=== PATIENT | female | born 1960 | race Caucasian/White ===

== ENCOUNTER 2021-12-22 22:40 | Inpatient (IN) ==
--- NOTE | 2021-12-22 22:59 | DR.AMS ---
HPI Time Seen Time Seen by Provider: 12/22/21 22:57 PCP Primary Care Physician: LYNDSEY CASTAÑEDA Complaint Cheif Complaint Doctors Comments: a 61 y/o male brought to the ED by [facility] due to AMS. Pt. is not able to provide hx. The staff nurse here called the residence and chatted with the pt's daughter who called EMS. The daughter states that ther has been notable change in mentation for about 1 welek now as well as weekness. The daughter and her has had to carry the pt. to and from bed/chair for the past couple of days. She has recently been started on an antibiotic for a UTI, though they are unuure aida much of this antibiotc that she has actually taken. The daughter states that the pt. had called her on the phone twice today, while she was at work. It was when the daughte arrived home about 1730 hrs. this evening, that she noted more decline in in awakefulness. She was able to adminsister her dose of Gabapentin this evening. Chief Complaint:: PT IN ED VIA [facility]. EMS STATES AMS x1 WK THAT HAS BEEN GETTING WORSE. RECENT UTI, UNKNOWN IF PT TOOK ABX FOR IT. COVID-19 Coronavirus risk:travel/contact w/high risk person: No Has patient experienced Coronavirus symptoms: No Reviewed Nurses Notes Reviewed: Yes Source History Provided: Family Member and EMS Mode of Arrival Mode of Arrival: EMS Timing Onset of Chief Complaint: 12/15/21 Came On: Gradually Symptoms: Worsening Symptom Onset: Known Onset of Symptoms Start Date: 12/15/21 Quality Quality: Decreased Alertness Context Recent: None History Of: Diabetes Associated Signs and Symptoms Associated Signs and Symptoms: Decreased LOC PMH PMH Past Medical History: Yes Past Medical History: Anxiety, CHF, Diabetes, Hypertension, MS and Renal Disease Past Medical History Comment: UTI, CKD STAGE 3, BULLOWS PEMPHIGOID Past Surgical History: Yes Surgical History: Angioplasty/Stents, Cholecystectomy, Ortho Surgery, Tonsillectomy and Other Past Surgical History Comment: RIGHT BKA Family History History of Family Medical Conditions: Yes Family Medical History: Diabetes Mellitus, MS and Hypertension Social History Alcohol Use: None Do you use any recreational Drugs:: No Travel Risk Coronavirus risk:travel/contact w/high risk person: No Has patient experienced Coronavirus symptoms: No Infectious screening Have you traveled outside the country in the last 6 months?: No Isolation: Standard ROS Review of Systems Constitutional: Weakness Eyes: No Symptoms Reported ENTM: No Symptoms Reported Respiratoy: No Symptoms Reported Cardiovascular: No Symptoms Reported Gastrointestinal/Abdominal: No Symptoms Reported Genitourinary: No Symptoms Reported Neurological: Other (decreased alertness) Musculoskeletal: No Symptoms Reported Integumentary: No Symptoms Reported Hematologic/Lymphatic: No Symptoms Reported Endocrine: No Symptoms Reported Psychiatric: No Symptoms Reported All Other Systems: Reviewed and Negative PE Vitals Vital Signs: Temp Pulse Pulse Resp BP BP Pulse Ox 12/23/21 00:31 100.4 F H 89 18 101/49 95 12/23/21 00:01 100.9 F H 88 18 106/52 94 L 12/22/21 22:43 102.9 F H 96 H 18 146/58 100 12/05/21 20:57 130/55 O2 Del Method 12/23/21 00:31 Room Air 12/23/21 00:01 12/22/21 22:43 Room Air 12/05/21 20:57 General Limitations: Altered Mental Status General Appearance: Lethargic Head Head Exam: Normal Inspection, Atraumatic and Normocephalic Eyes Eye exam: Normal Appearance and EOMI ENT ENT Exam: Normal External Ear Exam and Mucous Membranes Dry Nose Exam: Normal Nose Exam Mouth Exam: negative Normal Inspection, Drooling, Trismus, Lip Swelling, Tongue Elevation, Tongue Swelling or Laceration Neck Neck Exam: Normal Inspection, Full ROM and Trachea Midline Chest Chest Inspection: Normal Inspection and Symmetric Chest Wall Rise Respiratory Respiratory Exam: Normal Lung Sounds Bilat Cardiovascular Cardiovascular Exam: Regular Rate, Normal Rhythm, Normal Heart Sounds, +S1 and +S2 Abdominal Exam Abdominal Exam: Normal Inspection, Normal Bowel Sounds and Soft Extremities Extremities Exam: Other (s/p Rt. BKA, s/p amputation of Lt. 1st toe. There is celulitis from mid Lt. metatarsal down. There is wet, black gangrene of the Lt. 2nt toe. There is erythema/cellulitis of the Lt. 3rd toe. There is there is ulceration and cellulitis of the amputation stump at the Lt. 1st MTP joint. ) Back Back Exam: Normal Inspection Neurological Neurological Exam: Other (Arousable and oriented to self.) Patient Oriented To: Person Skin Skin Exam: Other (see exam noted under extremities. there is maceration of the Lt. 2nd and 3rd toe web spaces. Thereis an open blister on her Lt. flank, Lt. buttock medially. There is weeping sectretion from her inguinal and abdominal panippulous skin folds and multiple sdy scabs on her body. in ) COURSE Reevaluation 1st: Unchanged ROR Labs Reviewed Result Diagrams: 12/22/21 23:26 12/22/21 23: Laboratory: WBC 17.6 X10^3/uL (3.6-10.0) H 12/22/21 23: RBC 3.12 X10^6/uL (3.5-5.4) L 12/22/21 23: Hgb 8.8 g/dL (12.0-16.0) L 12/22/21: Hct 26.5 % (36.0-47.0) L 12/22/21 23: MCV 84.9 fL (80.0-100.0) 12/22/21 23: MCH 28.1 pg (27.0-34.0) 12/22/21 23: MCHC 33.1 g/dL (33.0-35.0) 12/22/21 23: RDW 14.2 % (11.6-16.5) 12/22/21: Plt Count 428 X10^3/uL (150.0-450.0) 12/22/21 23: MPV 7.2 fL (7.4-11.0) L 12/22/21 23: Neut % (Auto) 82.6 % (42.0-75.0) H 12/22/21: Lymph % (Auto) 4.7 % (21.0-51.0) L 12/22/21 23: [place] % (Auto) 5.1 % (0.0-13.0) 12/22/21: Eos % (Auto) 7.0 % (0.9-2.9) H 12/22/21 23: Baso % (Auto) 0.6 % (0.2-1.0) 12/22/21 23: Neut # (Auto) 14.5 x10^3/uL (2.2-4.8) H 12/22/21 23:26 Lymph # (Auto) 0.8 X10^3/uL (1.3-2.9) L 12/22/21 23:26 [place] # (Auto) 0.9 x10^3/uL (0.3-0.8) H 12/22/21 23:26 Eos # (Auto) 1.2 x10^3/uL (0.0-0.2) H 12/22/21 23:26 Baso # (Auto) 0.1 X10^3/uL (0.0-0.1) 12/22/21 23:26 Absolute Nucleated RBC 0.0 /100WBC 12/22/21 23:26 Sodium 133 mmol/L (136-145) L 12/22/21 23:26 Corrected Sodium TNP 12/22/21 23: Potassium 4.7 mmol/L (3.5-5.1) 12/22/21 23:26 Chloride 103 mmol/L (98-107) 12/22/21 23:26 Carbon Dioxide 19.5 mmol/L (21-32) L 12/22/21 23:26 BUN 38 mg/dL (7-18) H 12/22/21 23:26 Creatinine 2.69 mg/dL (0.55-1.02) H 12/22/21 23:26 Est GFR (MDRD) Af Amer 23 (>60) L 12/22/21 23:26 Est GFR (MDRD) Non-Af 19 (>60) L 12/22/21 23:26 Glucose 110 mg/dL (65-99) H 12/22/21 23:26 Calcium 7.3 mg/dL (8.5-10.1) L 12/22/21 23:26 Corrected Calcium 9.1 mg/dL (8.5-10.1) 12/22/21 23: Total Bilirubin 0.20 mg/dL (0.2-1.0) 12/22/21 23: AST 9 Units/L (15-37) L 12/22/21 23:26 ALT < 6 Units/L (12-78) L 12/22/21 23:26 Alkaline Phosphatase 248 Units/L (46-116) H 12/22/21 23:26 Total Protein 7.1 g/dL (6.4-8.2) 12/22/21 23: Albumin 1.8 g/dL (3.4-5.0) L 12/22/21 23: Globulin 5.3 g/dL (2.5-4.5) H 12/22/21 23: Albumin/Globulin Ratio 0.3 Ratio (1.1-2.1) L 12/22/21 23:26 Specimen Type Catherized urine 12/22/21 23:25 Urine Color Yellow (YELLOW) 12/22/21 23: Urine Appearance Cloudy (CLEAR) 12/22/21 23: Urine pH 7.0 (5.0 - 8.0) 12/22/21 23: Ur Specific [place] 1.005 (1.000-1.030) 12/22/21 23: Urine Protein 2+ (NEGATIVE) 12/22/21 23: Urine Glucose (UA) Negative (NEGATIVE) 12/22/21 23: Urine Ketones Negative (NEGATIVE) 12/22/21 23: Urine Blood 2+ (NEGATIVE) 12/22/21 23: Urine Nitrite Negative (NEGATIVE) 12/22/21 23: Urine Bilirubin Negative (NEGATIVE) 12/22/21 23:25 Urine Urobilinogen Normal (NORMAL) 12/22/21 23:25 Ur Leukocyte Esterase 3+ (NEGATIVE) 12/22/21 23:25 Urine RBC 3-5 /HPF (0-3) A 12/22/21 23:25 Urine WBC Tntc /HPF (0-5) A 12/22/21 23:25 Ur Squamous Epith Cells Rare /HPF (NEGATIVE) 12/22/21 23:25 Urine Bacteria 4+ /HPF (NEGATIVE) 12/22/21 23:25 Ur Culture Indicated? Yes/culture set up 12/22/21 23:25 Opioid Opioid Risk Tool Age (Skip box if 16-45): No History of Preadolescent Sexual Abuse: No Total: 0 Total Score Risk Category: Low Risk Copyright: Doroteo NICHOLAS predicting aberrant behaviors Discharge Plan Diagnosis Discharge Problem: Gangrene of toe of left foot, Cellulitis of foot, left, CKD (chronic kidney disease) stage 4, GFR 15-29 ml/min, Bullous pemphigoid, Hypothyroidism (acquired) AMS (altered mental status) Qualifiers: Altered mental status type: stupor Qualified Code(s): R40.1 - Stupor UTI (urinary tract infection) Qualifiers: Urinary tract infection type: acute cystitis Hematuria presence: without hematuria Qualified Code(s): N30.00 - Acute cystitis without hematuria Discharge Plan Patient Disposition: 09 ADMITTED INPATIENT Condition: Stable Discharge Comment: ADMITTED TO ICU 2 Orders to Discharge Patient Discharge Orders: Transfer (Routine); Ordered 12/23/21 Ordered By: RYAN JONES
[2021-12-22] MEDS ORDERED: NS 1,000 ML IV 1,000 ML IV ONE (23:11)
[2021-12-22] MEDS ORDERED: OFIRMEV IV 1000 MG VIAL 1,000 MG/100 ML VIAL IV ONE ×2 (23:14→23:25)
[2021-12-22] MEDS ORDERED: NYSTATIN POWDER ONE (23:16)
[2021-12-22] MEDS ORDERED: NYSTATIN POWDER TOP ONE (23:22)
[2021-12-22] MEDS ORDERED: NS 1,000 ML IV 1,000 ML ONE (23:25)
[2021-12-23 00:02] LABS: BILIRUBIN,URINE NEGATIVE (NEGATIVE); BLOOD/HEMOGLOBIN,URINE 2+ (NEGATIVE); GLUCOSE, URINE NEGATIVE (NEGATIVE); KETONES,URINE NEGATIVE (NEGATIVE); LEUKOCYTE ESTERASE ,URINE 3+ (NEGATIVE); NITRITES,URINE NEGATIVE (NEGATIVE); PROTEIN,URINE 2+ (NEGATIVE); UROBILINOGEN,URINE NORMAL (NORMAL)
[2021-12-23 00:04] LABS: BASOPHILS # (AUTO) 0.1 X10^3/uL (0.0-0.1); BASOPHILS % (AUTO) 0.6 % (0.2-1.0); EOSINOPHILS # (AUTO) 1.2 x10^3/uL (0.0-0.2); HEMATOCRIT 26.5 % (36.0-47.0); HEMOGLOBIN 8.8 g/dL (12.0-16.0); LYMPHOCYTES # (AUTO) 0.8 X10^3/uL (1.3-2.9); LYMPHOCYTES % (AUTO) 4.7 % (21.0-51.0); MEAN CORPUSCULAR HEMOGLOBIN 28.1 pg (27.0-34.0); MEAN CORPUSCULAR HGB CONC 33.1 g/dL (33.0-35.0); MEAN CORPUSCULAR VOLUME 84.9 fL (80.0-100.0); MEAN PLATELET VOLUME 7.2 fL (7.4-11.0); MONOCYTES # (AUTO) 0.9 x10^3/uL (0.3-0.8); MONOCYTES % (AUTO) 5.1 % (0.0-13.0); NEUTROPHILS # (AUTO) 14.5 x10^3/uL (2.2-4.8); NEUTROPHILS % (AUTO) 82.6 % (42.0-75.0); RED BLOOD COUNT 3.12 X10^6/uL (3.5-5.4); RED CELL DISTRIBUTION WIDTH 14.2 % (11.6-16.5); WHITE BLOOD COUNT 17.6 X10^3/uL (3.6-10.0)
[2021-12-23 00:07] LABS: ALANINE AMINOTRANSFERASE < 6 Units/L (12-78); ALBUMIN 1.8 g/dL (3.4-5.0); ALKALINE PHOSPHATASE 248 Units/L (46-116); ASPARTATE AMINO TRANSFERASE 9 Units/L (15-37); BLOOD UREA NITROGEN 38 mg/dL (7-18); CALCIUM 7.3 mg/dL (8.5-10.1); CARBON DIOXIDE 19.5 mmol/L (21-32); CHLORIDE 103 mmol/L (98-107); COR CA(FOR HYPOALB) 9.1 mg/dL (8.5-10.1); CREATININE 2.69 mg/dL (0.55-1.02); SODIUM 133 mmol/L (136-145); TOTAL PROTEIN 7.1 g/dL (6.4-8.2); eGFR NON BLACK RACES 19 (>60)
[2021-12-23 00:10] LABS: APPEARANCE,URINE CLOUDY (CLEAR); COLOR,URINE YELLOW (YELLOW)
[2021-12-23 00:11] LABS: BACTERIA,URINE 4+ /HPF (NEGATIVE); SQUAMOUS EPITHELIAL CELL,UR RARE /HPF (NEGATIVE)
[2021-12-23] MEDS ORDERED: ROCEPHIN VIAL 2 GRAMS 2 G in NS 100 ML IV 100 ML IV ONE (00:15)
--- NOTE | 2021-12-23 00:15 | CT ---
PROCEDURE: CT Head without Contrast .HISTORY: Altered mental status.TECHNIQUE: Axial images were performed through the head without the administration of IV contrast with multiplanar reformations . Dose reduction techniques including Automated Exposure Control (AEC) and adjustment of mA and kV were utilized .COMPARISON: None .TECHNICAL QUALITY: Satisfactory .FINDINGS:Brain shows no mass, hemorrhage, or acute stroke.Mild periventricular old micro ischemic changes. Mild diffuse cerebral atrophy.Ventricles are normal size for patient's age.No acute skull or scalp abnormality.Visualized sinuses and mastoids are clear.IMPRESSION:1. No acute intracranial abnormality.2. Senescent changes.Electronically signed by: David Rodriguez (Dec 23, 2021 00:14:39)
[2021-12-23] MEDS ORDERED: NS 100 ML IV 100 ML ONE (00:17)
[2021-12-23] MEDS ORDERED: ROCEPHIN VIAL 2 GRAMS ONE (00:17)
--- NOTE | 2021-12-23 00:23 | RAD ---
PROCEDURE: Chest X-ray 1 View .HISTORY: Altered mental status and fever.TECHNIQUE: AP view .COMPARISON: 08/08/2019.TECHNICAL QUALITY: Satisfactory .FINDINGS:Heart size upper limits of normal and increased compared to previous study.Mediastinum and hilar regions show no masses or lymphadenopathy .Normal central vascularity .No pulmonary consolidation, masses, pleural fluid, or pneumothorax .No acute bony abnormality .IMPRESSION:1. Heart size upper limits of normal and increased compared to previous study.2. No other evidence of active disease.Electronically signed by: David Rodriguez (Dec 23, 2021 00:22:21)
[2021-12-23] MEDS: NS 1,000 ML IV 1,000 ML IV SCH ×3 (01:37→19:51)
[2021-12-23 02:02] VITALS: BMI 35.2
[2021-12-23 06:15] LABS: BASOPHILS # (AUTO) 0.1 X10^3/uL (0.0-0.1); BASOPHILS % (AUTO) 0.3 % (0.2-1.0); EOSINOPHILS # (AUTO) 0.3 x10^3/uL (0.0-0.2); EOSINOPHILS % (AUTO) 1.6 % (0.9-2.9); HEMATOCRIT 24.5 % (36.0-47.0); HEMOGLOBIN 7.9 g/dL (12.0-16.0); LYMPHOCYTES # (AUTO) 1.2 X10^3/uL (1.3-2.9); LYMPHOCYTES % (AUTO) 6.3 % (21.0-51.0); MEAN CORPUSCULAR HEMOGLOBIN 27.5 pg (27.0-34.0); MEAN CORPUSCULAR HGB CONC 32.3 g/dL (33.0-35.0); MEAN CORPUSCULAR VOLUME 85.2 fL (80.0-100.0); MEAN PLATELET VOLUME 7.3 fL (7.4-11.0); MONOCYTES # (AUTO) 1.3 x10^3/uL (0.3-0.8); MONOCYTES % (AUTO) 6.9 % (0.0-13.0); NEUTROPHILS # (AUTO) 16.5 x10^3/uL (2.2-4.8); NEUTROPHILS % (AUTO) 84.9 % (42.0-75.0); RED BLOOD COUNT 2.88 X10^6/uL (3.5-5.4); RED CELL DISTRIBUTION WIDTH 14.4 % (11.6-16.5); WHITE BLOOD COUNT 19.5 X10^3/uL (3.6-10.0)
[2021-12-23 06:26] LABS: ALANINE AMINOTRANSFERASE < 6 Units/L (12-78); ALBUMIN 1.5 g/dL (3.4-5.0); ALKALINE PHOSPHATASE 218 Units/L (46-116); ASPARTATE AMINO TRANSFERASE 13 Units/L (15-37); BLOOD UREA NITROGEN 37 mg/dL (7-18); CARBON DIOXIDE 19.8 mmol/L (21-32); CHLORIDE 106 mmol/L (98-107); CREATININE 2.59 mg/dL (0.55-1.02); SODIUM 137 mmol/L (136-145); TOTAL PROTEIN 6.3 g/dL (6.4-8.2); eGFR NON BLACK RACES 20 (>60)
[2021-12-23] MEDS: NYSTATIN POWDER TOP SCH ×2 (09:44→20:24)
--- NOTE | 2021-12-23 10:59 | CT ---
CT left foot without contrastIndication: Gangrene.[facility] 2021 radiograph showing prior resection of the great toe distal 2/3 metatarsal and phalangesTECHNIQUEHelical images through the left foot without contrast. Coronal and sagittal reformats provided.FINDINGSExtensive muscle belly atrophy seen at the ankle. Within limits of CT, there is intact ligaments and tendons at the ankle. Patient is osteopenic.There is postsurgical change from great toe resection. This is the level of the proximal aspect of metatarsal bone. Advanced midfoot degenerative change at the tarsometatarsal and intertarsal joints suggesting neuropathic joint most likely.There is extensive soft tissue gas, with large skin defect seen over the medial aspect of the forefoot on sagittal image 65 and axial image 11. Gas tracks along the extensor tendon to the 2nd toe on axial image 105, with extensive gas around the MTP joint and also extending into the medullary cavity of the 2nd toe metatarsal head and proximal phalanx see sagittal images 47-50. Septic arthritis and advanced osteomyelitis of the 2nd toe present. This is centered around the MTP joint.Gas tracks along 3rd toe minimally, approaching the MTP joint and extension of infection here is possible. Soft tissue swelling is seen over the osteotomy site of the great toe with gas seen along the plantar aspect of the foot, tracking towards the flexor hallucis longus on coronal images 85-92. Infected tenosynovitis likely. Extensive soft tissue stranding in the medial forefoot adjacent to the ulcers on coronal images 110-96 noted. With pocket of abscess likely.Gas tracks along the flexor tendons to the 2nd toe and possibly the 3rd toe on coronal images 112-104 of series 4.IMPRESSION1. Extensive infection of the forefoot, with soft tissue gas, large ulcers and probable pocket of fluid.2. Extensive gas surrounding the 2nd toe MTP joint and extending towards the 3rd toe MTP joint.3. Gas seen within the bone of the 2nd and 3rd toes, compatible with 2nd toe MTP joint septic arthritis and osteomyelitis of the 2nd toe metatarsal head and proximal phalanx. Similar involvement 3rd toe not excluded4. Gas tracks along the flexor hallucis longus in the medial forefoot and along the flexor tendons, particularly to the 2nd toe but also abutting the 3rd toe flexor tendons as well. Gas seen along the extensor tendon to the 2nd toe. Infected tenosynovitis presumed.5. Advanced midfoot DJD, muscle belly atrophy, presumably neuropathic in origin. Urgent surgical evaluation recommended. Gangrene likely peerElectronically signed by: ROB VINSON (Dec 23, 2021 10:56:49)
[2021-12-23] MEDS ORDERED: FORTAZ or TAZICEF VIAL INJ 2 G in NS 100 ML IV 100 ML IV SCH (11:00)
[2021-12-23] MEDS: ALBUMIN HUMAN 25%- 100 ML 100 ML IV SCH (11:58)
[2021-12-23] MEDS: LEVAQUIN PREMIX IV 750 MG 750 MG/150 ML BAG IV SCH (12:00)
[2021-12-23] MEDS ORDERED: MORPHINE SULFATE INJ 2 MG INJ IVP PRN (17:00)
[2021-12-23] MEDS: DILAUDID INJ IVP PRN (18:02)
[2021-12-23] MEDS: ZOFRAN INJ 4 MG VIAL IVP PRN (19:20)
[2021-12-23] MEDS: BENADRYL INJ 50 MG VIAL IVP PRN (20:24)
[2021-12-23] MEDS ORDERED: ROCEPHIN VIAL 1 GRAM 2 G in NS 100 ML IV 100 ML IV SCH (21:00)
[2021-12-24] MEDS: DILAUDID INJ IVP PRN ×3 (03:12→18:00)
[2021-12-24] MEDS: NS 1,000 ML IV 1,000 ML IV SCH ×2 (03:26→16:50)
[2021-12-24] MEDS: BENADRYL INJ 50 MG VIAL IVP PRN ×2 (04:47→20:23)
[2021-12-24 04:51] LABS: BASOPHILS # (AUTO) 0.1 X10^3/uL (0.0-0.1); BASOPHILS % (AUTO) 0.4 % (0.2-1.0); EOSINOPHILS # (AUTO) 1.4 x10^3/uL (0.0-0.2); EOSINOPHILS % (AUTO) 8.2 % (0.9-2.9); HEMATOCRIT 22.4 % (36.0-47.0); HEMOGLOBIN 7.4 g/dL (12.0-16.0); LYMPHOCYTES # (AUTO) 1.6 X10^3/uL (1.3-2.9); LYMPHOCYTES % (AUTO) 9.4 % (21.0-51.0); MEAN CORPUSCULAR HEMOGLOBIN 28.3 pg (27.0-34.0); MEAN CORPUSCULAR VOLUME 85.8 fL (80.0-100.0); MEAN PLATELET VOLUME 7.6 fL (7.4-11.0); MONOCYTES # (AUTO) 1.1 x10^3/uL (0.3-0.8); MONOCYTES % (AUTO) 6.5 % (0.0-13.0); NEUTROPHILS # (AUTO) 12.8 x10^3/uL (2.2-4.8); NEUTROPHILS % (AUTO) 75.5 % (42.0-75.0); RED BLOOD COUNT 2.61 X10^6/uL (3.5-5.4); RED CELL DISTRIBUTION WIDTH 14.6 % (11.6-16.5)
[2021-12-24 04:58] LABS: ALANINE AMINOTRANSFERASE 8 Units/L (12-78); ALBUMIN 1.6 g/dL (3.4-5.0); ALKALINE PHOSPHATASE 253 Units/L (46-116); ASPARTATE AMINO TRANSFERASE 24 Units/L (15-37); BLOOD UREA NITROGEN 28 mg/dL (7-18); CARBON DIOXIDE 20.4 mmol/L (21-32); CHLORIDE 108 mmol/L (98-107); COR CA(FOR HYPOALB) 8.9 mg/dL (8.5-10.1); SODIUM 137 mmol/L (136-145); eGFR NON BLACK RACES 29 (>60)
--- NOTE | 2021-12-24 05:15 | RAD ---
PROCEDURE: Chest X-ray 1 View .HISTORY: Preoperative chest x-ray with gangrene left foot.TECHNIQUE: AP view .COMPARISON: 12/22/2021.TECHNICAL QUALITY: Satisfactory .FINDINGS:Heart size upper limits of normal and unchanged.Mediastinum and hilar regions show no masses or lymphadenopathy .Normal central vascularity .No pulmonary consolidation, masses, pleural fluid, or pneumothorax. Discoid atelectasis left base.No acute bony abnormality .IMPRESSION:1. Unchanged start size upper limits of normal.2. Discoid atelectasis left lung base.Electronically signed by: David Rodriguez (Dec 24, 2021 05:13:30)
[2021-12-24] MEDS ORDERED: D50W ABBOJECT SYR ONE ×2 (05:23→11:55)
[2021-12-24] MEDS ORDERED: GLUTOSE 15 GEL ORAL PO PRN (06:25)
[2021-12-24] MEDS ORDERED: GLUTOSE 15 GEL ORAL PO ONE (06:28)
[2021-12-24] MEDS: D50W ABBOJECT SYR IV ONE ×2 (06:33→07:19)
[2021-12-24] MEDS: NYSTATIN POWDER TOP SCH ×2 (09:16→20:21)
[2021-12-24] MEDS: ALBUMIN HUMAN 25%- 100 ML 100 ML IV SCH (09:58)
[2021-12-24] MEDS: FORTAZ or TAZICEF VIAL INJ 2 G in NS 100 ML IV 100 ML IV SCH ×2 (09:59→20:16)
[2021-12-24] MEDS ORDERED: FENTANYL VIAL INJ 100 mcg ONE (11:03)
[2021-12-24] MEDS ORDERED: VERSED ONE (11:03)
[2021-12-24] MEDS ORDERED: ZOFRAN INJ 4 MG VIAL ONE (11:03)
[2021-12-24] MEDS ORDERED: PEPCID 20 MG VIAL ONE (11:03)
[2021-12-24] MEDS ORDERED: DIPRIVAN VIAL 20 ML ONE (11:04)
[2021-12-24] MEDS ORDERED: XYLOCAINE 2 % (PLAIN) ONE (11:06)
[2021-12-24] MEDS ORDERED: BETADINE SOLN ONE (11:08)
[2021-12-24] MEDS ORDERED: ANCEF VIAL 1 GRAM ONE (11:12)
[2021-12-24] MEDS ORDERED: NS 100 ML IV 100 ML ONE (11:12)
[2021-12-24] MEDS ORDERED: NS 1,000 ML IV 1,000 ML ONE (11:12)
--- NOTE | 2021-12-24 11:23 | DR.H&P ---
H&P - History & Physical for Day of: H&P Date: 12/23/21 - Chief Complaint Chief Complaint: AMS, DECREASED RESPONSIVENESS, LEFT FOOT WOUND - History of Present Illness History of Present Illness: IS A 61 YEAR OLD PATIENT OF [facility]. SHE PRESENTED TO THE ER VIA EMS WITH REPORTS OF AMS, DROWSINESS, RECENT UTI, AND LEFT FOOT WOUND AND REDNESS. SHE TOOK AUGMENTIN 500/125MG PO BID FROM 12/06-12/17 FOR UTI. HER PMH INCLUDES: CHF, [place], HTN, RENAL DISEASE, DM II, BULLOWS PEMPHIGOID, ANXIETY, CHOLECYSTECTOMY, TONSILLECTOMY, RIGHT BELOW THE KNEE AMPUTATION, AND LEFT GREAT TOE AMPUTATION. ON ARRIVAL TO THE ER, PATIENT WAS NOTED WITH DECREASED ALERTNESS, BUT WAS AROUSABLE AND ORIENTED TO SELF. EXAMINATION REVEALED CELLULITIS FROM THE MID LEFT METATARSAL DOWN. THERE IS WET, BLACK GANGRENE OF THE LEFT SECOND TOE. THERE IS CELLULITIS OF THE LEFT 3RD TOE. THERE IS ULCERATION AND CELLULITIS OF THE AMPUTATION STUMP AT THE LEFT FIRST MTP JOINT. THERE IS AN OPEN BLISTER ON THE LEFT FLANK, LEFT BUTTOCK MEDIALLY. THERE IS WEEPING SECRETION FROM HER INGUINAL AND ABDOMINAL SKIN FOLDS. ON ARRIVAL, VITALS WERE: 102.9-96-18-100%-146/58. LABS WERE OBTAINED. WBC 17.6, RBC 3.12, HGB 8.8, HCT 26.5, SODIUM 133, POTASSIUM 4.7, CARBON DIOXIDE 19.5, BUN 38, CREATININE 2.69, GLUCOSE 110, CALCIUM 7.3, AST 9, ALT <6, ALK PHOS 248, ALBUMIN 1.8, CRP 411.60, BNP 343. URINALYSIS REVEALED: WBC TNTC, RBC 3-5, BACTERIA 4+, LEUKOCYTES 3+. COVID, INFLUENZA, AND RSV ARE NEGATIVE. BLOOD, URINE, AND LEFT FOOT WOUND CULTURES WERE SET UP. A CHEST XRAY WAS OBTAINED AND REVEALED: 1. Heart size upper limits of normal and increased compared to previous study. 2. No other evidence of active disease. A BRAIN CT WITHOUT CONTRAST WAS OBTAINED AND REVEALED: 1. No acute intracranial abnormality. 2. Senescent changes. A LOWER EXTREMITY CT WITHOUT CONTRAST WAS OBTAINED AND REVEALED: 1. Extensive infection of the forefoot, with soft tissue gas, large ulcers and probable pocket of fluid.2. Extensive gas surrounding the 2nd toe MTP joint and extending towards the 3rd toe MTP joint.3. Gas seen within the bone of the 2nd and 3rd toes, compatible with 2nd toe MTP joint septic arthritis and osteomyelitis of the 2nd toe metatarsal head and proximal phalanx. Similar involvement 3rd toe not excluded4. Gas tracks along the flexor hallucis longus in the medial forefoot and along the flexor tendons, particularly to the 2nd toe but also abutting the 3rd toe flexor tendons as well. Gas seen along the extensor tendon to the 2nd toe. Infected tenosynovitis presumed.5. Advanced midfoot DJD, muscle belly atrophy, presumably neuropathic in origin. Urgent surgical evaluation recommended. Gangrene likely peer. IN THE ER, SHE WAS GIVEN A NORMAL SALINE BOLUS, OFIRMEV 1G IV X 1, AND ROCEPHIN 2G IV X 1. SHE WAS ADMITTED TO THE HOSPITAL FOR FURTHER EVALUATION AND TREATMENT OF UTI, GANGRENE OF THE LEFT FOOT, BLE CELLULITIS, CHRONIC KIDNEY DISEASE, UTI. SHE WAS STARTED ON NORMAL SALINE AT 125ML/HR, LEVAQUIN 750MG IV Q48H, FORTAZ 2G IV BID, ALBUMIN 25% IV DAILY, OTBS ACHS, NOVOLIN R SLIDING SCALE, NYSTATIN POWDER BID, AND ACETAMINOPHEN 1G IV Q6H PRN. WE WILL CONSULT FOR EVALUATION OF WOUNDS AND GANGRENE TO FOOT. WE WILL OBTAIN AN EKG. OTHERWISE, WE PLAN TO FOLLOW-UP WITH AM LABS AND CONTINUE TO MONITOR. TIME SPENT ON CLINICAL ASSESSMENT, REVIWING LABS AND IMAGING, DECISION MAKING, AND DOCUMENTATION GREATER THAN 75 MINUTES. - Past Medical History Past Medical History: [place], Hypertension, Diabetes, Renal Disease, Anxiety, CHF - Past Surgical History Surgical History: Cholecystectomy, Ortho Surgery, Tonsillectomy, Other - Family History Family Medical History: Diabetes Mellitus, [place], Hypertension - Social History Alcohol Use: None - Medications Home Medications: No Known Drug Allergies Allergy (Verified 12/05/21 21:12) - Review of Systems Constitutional: Weakness Eyes: No Symptoms Reported ENT: No Symptoms Reported Respiratory: No Symptoms Reported Cardiovascular: No Symptoms Reported Gastrointestinal: No Symptoms Reported Genitourinary: No Symptoms Reported Musculoskeletal: No Symptoms Reported Skin: See HPI, Wound (LEFT FOOT ) Neurological: See HPI, Weakness, Confusion - Physical Exam Vital Signs: Temperature 98.1 F Pulse Rate [Apical] 89 Pulse Rate 83 Respiratory Rate 18 Blood Pressure [Right Arm] 101/49 Blood Pressure 123/60 O2 Sat by Pulse Oximetry 98 Oriented: Person Eyes: Normal Ear: Normal Nose: Normal Throat: Normal Respiratory: Diminished Throughout Cardiovascular: Normal : Normal Auscultation: Bowel Sounds: Normal Palpation: Normal Tenderness: Normal Skin: Red, Tender, Hot, Wound (LEFT FOOT WOUND AND GANGRENOUS CHANGE, RIGHT LEG STUMP CELLULITIS) Musculoskeletal: Normal Psychiatric: Normal Mood Description: Calm Affect: Normal Speech Pattern: Appropriate - Assessment/Plan (1) Bilateral lower leg cellulitis Status: Acute Plan: ADMIT, NORMAL SALINE AT 125ML/HR, LEVAQUIN 750MG IV Q48H, FORTAZ 2G IV BID, ALBUMIN 25% IV DAILY, OTBS ACHS, NOVOLIN R SLIDING SCALE, NYSTATIN POWDER BID, AND ACETAMINOPHEN 1G IV Q6H PRN. SURGICAL CONSULT (2) Gangrene of toe of left foot Status: Acute (3) UTI (urinary tract infection) Qualifiers: Urinary tract infection type: acute cystitis Hematuria presence: without hematuria Qualified Code(s): N30.00 - Acute cystitis without hematuria Status: Acute (4) AMS (altered mental status) Qualifiers: Altered mental status type: stupor Qualified Code(s): R40.1 - Stupor Status: Acute (5) CKD (chronic kidney disease) stage 4, GFR 15-29 ml/min Status: Chronic (6) CHF (congestive heart failure) Qualifiers: Heart failure type: unspecified Heart failure chronicity: acute on chronic Qualified Code(s): I50.9 - Heart failure, unspecified Status: Acute (7) DM II (diabetes mellitus, type II), controlled Qualifiers: Diabetes mellitus shelter insulin use: unspecified long term care phlebotomist insulin use status Diabetes mellitus complication status: with hyperglycemia Qualified Code(s): E11.65 - Type 2 diabetes mellitus with hyperglycemia Status: Chronic - Allergies Allergies/Adverse Reactions: Allergies Allergy/AdvReac Type Severity Reaction Status Date / Time No Known Drug Allergies Allergy Verified 12/05/21 21:12
[2021-12-24] MEDS ORDERED: REGLAN INJ 10 MG VIAL ONE (11:37)
[2021-12-24] MEDS ORDERED: POLYMYXIN B SULFATE ONE (11:58)
[2021-12-24] MEDS ORDERED: DECADRON INJ ONE (12:06)
[2021-12-24] MEDS ORDERED: DILAUDID INJ IVP PRN (12:31)
[2021-12-24] MEDS ORDERED: BARHEMSYS INJ IVP PRN (12:31)
[2021-12-24] MEDS ORDERED: BENADRYL INJ 50 MG VIAL IVP PRN (12:31)
[2021-12-24] MEDS ORDERED: PHENERGAN INJ 25 MG IM PRN (12:31)
--- NOTE | 2021-12-24 14:01 | PCM.PROG ---
Progress Note - Progress Note for Day of Date of Exam: 12/24/21 - Subjective Subjective: WAS ADMITTED FOR TREATMENT OF BILATERAL LOWER EXTREMITY CELLULITIS, GANGRENE OF TOE OF THE LEFT FOOT, UTI, AND AMS. SHE HAS A HISTORY OF CAD, CHF, AND DM II. TODAY, SHE IS LYING IN BED WITH EYES CLOSED ON MORNING ROUNDS. SHE AWAKENS TO VERBAL STIMULI. ON EXAMINATION TODAY, HEART IS REGULAR IN RATE AND RHYTHM. BILATERAL LUNGS NOTED WITH DIMINISHED LUNG SOUNDS THROUGHOUT. ABDOMEN IS OBESE, SOFT, AND NON-TENDER WITH NORMAL BOWEL SOUNDS NOTED IN ALL QUADRANTS. RIGHT LOWER EXTREMITY STUMP NOTED WITH MILD ERYTHEMA. DRESSING NOTED TO LEFT FOOT. HER VITALS THIS MORNING ARE: 98.1-79-15-100%-119/56. LABS WERE OBTAINED. WBC 17.0, RBC 2.61, HGB 7.4, HCT 22.4, PLT COUNT 364, SODIUM 137, P OTASSIUM 4.0, CHLORIDE 108, CARBON DIOXIDE 20.4, BUN 28, CREATININE 1.90, GLUCOSE 65, CALCIUM 7.0, AST 24, ALT 8, ALK PHOS 253, CRP 343.70, BNP 808, TOTAL PROTEIN 6.0, ALBUMIN 1.6. BLOOD, WOUND, AND URINE CULTURES ARE PENDING. HER GLUCOSE DROPPED TO THE 40s YESTERDAY AFTERNOON AND AGAIN THIS MORNING. SHE WAS GIVEN AN AMP OF D50 EACH TIME. AN ECHO WAS OBTAINED AND REVEALED AN EJECTION FRACTION OF 50-55%. EKG REVEALS NORMAL SINUS RHYTHM WITH HR 80bpm. DR. ADAMS HAS CONSULTED WITH PATIENT AND PLANS FOR GUILLOTINE AMPUTATION OF THE LEFT FOOT ABOVE THE ANKLE. WE ARE IN AGREEMENT WITH PLANS. PATIENT IS MEDICALLY STABLE AND CLEARED FOR SURGERY. SHE IS CURRENTLY RECEIVING NORMAL SALINE AT 125ML/HR, LEVAQUIN 750MG IV Q48H, FORTAZ 2G IV BID, ALBUMIN 25% IV DAILY, OTBS ACHS, NOVOLIN R SLIDING SCALE, NYSTATIN POWDER BID, AND ACETAMINOPHEN 1G IV Q6H PRN. WE WILL DECREASE HER IV FLUIDS TO 30 ML/HR. OTHERWISE, WE PLAN TO FOLLOW-UP WITH AM LABS AND CONTINUE TO MONITOR. TIME SPENT ON CLINICAL ASSESSMENT, REVIWING LABS AND IMAGING, DECISION MAKING, AND DOCUMENTATION GREATER THAN 45 MINUTES. - Past Medical Family Social History Past Med/Fam/Surg Hx: No changes since H&P Allergies: Allergies No Known Drug Allergies Allergy (Verified 12/05/21 21:12) - Review of Systems ROS: No change since H&P - Vital Signs and I&O's Vital Signs: Temperature 97.0 F Pulse Rate [Apical] 89 Pulse Rate 75 Respiratory Rate 18 Blood Pressure [Right Arm] 101/49 Blood Pressure 96/53 O2 Sat by Pulse Oximetry 96 Intake and Output: Intake & Output 12/22/21 12/23/21 12/24/21 12/25/21 11:59 11:59 11:59 11:59 Intake Total 393 / 393 2150 / 2150 1050 / 1050 Output Total 1225 / 1225 300 / 300 999 / 999 Balance -832 / -832 1850 / 1850 51 / 51 - Physical Exam Oriented: Person Eyes: Normal Ear: Normal Nose: Normal Throat: Normal Cardiovascular: Normal : Normal Auscultation: Bowel Sounds: Normal Palpation: Normal Tenderness: Normal Skin: Red, Tender, Hot, Wound (LEFT FOOT WOUND AND GANGRENOUS CHANGE, RIGHT LEG STUMP CELLULITIS) Musculoskeletal: Foot, Swelling, Tender Psychiatric: Normal Mood Description: Calm Affect: Normal Speech Pattern: Appropriate - Laboratory and Diagnostics Result Diagrams: 12/26/21 04:15 12/26/21 04:15 Labs: 12/22/21 23:26 Blood Blood Culture - Preliminary 12/22/21 23:40 Blood Blood Culture - Preliminary 12/22/21 23:14 Foot - Left Wound Gram Stain - Final 12/22/21 23:14 Foot - Left Wound Culture - Preliminary 12/22/21 23:25 Urine,Catheterized Urine Culture - Preliminary Laboratory WBC 17.0 X10^3/uL (3.6-10.0) H 12/24/21 04:05 RBC 2.61 X10^6/uL (3.5-5.4) L 12/24/21 04:05 Hgb 7.4 g/dL (12.0-16.0) L 12/24/21 04:05 Hct 22.4 % (36.0-47.0) L 12/24/21 04:05 MCV 85.8 fL (80.0-100.0) 12/24/21 04:05 MCH 28.3 pg (27.0-34.0) 12/24/21 04:05 MCHC 33.0 g/dL (33.0-35.0) 12/24/21 04:05 RDW 14.6 % (11.6-16.5) 12/24/21 04:05 Plt Count 364 X10^3/uL (150.0-450.0) 12/24/21 04:05 MPV 7.6 fL (7.4-11.0) 12/24/21 04:05 Neut % (Auto) 75.5 % (42.0-75.0) H 12/24/21 04:05 Lymph % (Auto) 9.4 % (21.0-51.0) L 12/24/21 04:05 [place] % (Auto) 6.5 % (0.0-13.0) 12/24/21 04:05 Eos % (Auto) 8.2 % (0.9-2.9) H 12/24/21 04:05 Baso % (Auto) 0.4 % (0.2-1.0) 12/24/21 04:05 Neut # (Auto) 12.8 x10^3/uL (2.2-4.8) H 12/24/21 04:05 Lymph # (Auto) 1.6 X10^3/uL (1.3-2.9) 12/24/21 04:05 [place] # (Auto) 1.1 x10^3/uL (0.3-0.8) H 12/24/21 04:05 Eos # (Auto) 1.4 x10^3/uL (0.0-0.2) H 12/24/21 04:05 Baso # (Auto) 0.1 X10^3/uL (0.0-0.1) 12/24/21 04:05 Absolute Nucleated RBC 0.0 /100WBC 12/24/21 04:05 Sodium 137 mmol/L (136-145) 12/24/21 04:05 Corrected Sodium TNP 12/24/21 04:05 Potassium 4.0 mmol/L (3.5-5.1) 12/24/21 04:05 Chloride 108 mmol/L (98-107) H 12/24/21 04:05 Carbon Dioxide 20.4 mmol/L (21-32) L 12/24/21 04:05 BUN 28 mg/dL (7-18) H 12/24/21 04:05 Creatinine 1.90 mg/dL (0.55-1.02) H 12/24/21 04:05 Est GFR (MDRD) Af Amer 35 (>60) L 12/24/21 04:05 Est GFR (MDRD) Non-Af 29 (>60) L 12/24/21 04:05 Glucose 147 mg/dL (65-99) H 12/24/21 07:09 POC Glucose (mg/dL) 103 mg/dL (65-99) H 12/24/21 12:31 Lactic Acid 0.5 mmol/L (0.4-2.0) 12/23/21 00:45 Calcium 7.0 mg/dL (8.5-10.1) L 12/24/21 04:05 Corrected Calcium 8.9 mg/dL (8.5-10.1) 12/24/21 04:05 Total Bilirubin 0.10 mg/dL (0.2-1.0) L 12/24/21 04:05 AST 24 Units/L (15-37) 12/24/21 04:05 ALT 8 Units/L (12-78) L 12/24/21 04:05 Alkaline Phosphatase 253 Units/L (46-116) H 12/24/21 04:05 C-Reactive Protein 343.70 mg/L (0-3.0) H 12/24/21 04:05 B-Natriuretic Peptide 808 pg/mL (0-79) H* 12/24/21 04:05 Total Protein 6.0 g/dL (6.4-8.2) L 12/24/21 04:05 Albumin 1.6 g/dL (3.4-5.0) L 12/24/21 04:05 Globulin 4.4 g/dL (2.5-4.5) 12/24/21 04:05 Albumin/Globulin Ratio 0.4 Ratio (1.1-2.1) L 12/24/21 04:05 TSH 3rd Generation 2.645 uIU/mL (0.358-3.74) 12/22/21 23:26 Specimen Type Catherized urine 12/22/21 23:25 Urine Color Yellow (YELLOW) 12/22/21 23:25 Urine Appearance Cloudy (CLEAR) 12/22/21 23:25 Urine pH 7.0 (5.0 - 8.0) 12/22/21 23:25 Ur Specific [place] 1.005 (1.000-1.030) 12/22/21 23:25 Urine Protein 2+ (NEGATIVE) 12/22/21 23:25 Urine Glucose (UA) Negative (NEGATIVE) 12/22/21 23:25 Urine Ketones Negative (NEGATIVE) 12/22/21 23: Urine Blood 2+ (NEGATIVE) 12/22/21 23: Urine Nitrite Negative (NEGATIVE) 12/22/21 23: Urine Bilirubin Negative (NEGATIVE) 12/22/21 23: Urine Urobilinogen Normal (NORMAL) 12/22/21 23:25 Ur Leukocyte Esterase 3+ (NEGATIVE) 12/22/21 23: Urine RBC 3-5 /HPF (0-3) A 12/22/21 23: Urine WBC Tntc /HPF (0-5) A 12/22/21 23:25 Ur Squamous Epith Cells Rare /HPF (NEGATIVE) 12/22/21 23: Urine Bacteria 4+ /HPF (NEGATIVE) 12/22/21 23:25 Ur Culture Indicated? Yes/culture set up 12/22/21 23:25 SARS-CoV-2 (PCR) Negative (NEGATIVE) 12/23/21 00:14 Influenza Type A (PCR) Negative (NEGATIVE) 12/23/21 00:14 Influenza Type B (PCR) Negative (NEGATIVE) 12/23/21 00:14 RSV (PCR) Negative (NEGATIVE) 12/23/21 00:14 Tissue Pathology To follow 12/24/21 11:33 - Plan (1) Bilateral lower leg cellulitis Status: Acute Plan: NORMAL SALINE AT 125ML/HR, LEVAQUIN 750MG IV Q48H, FORTAZ 2G IV BID, ALBUMIN 25% IV DAILY, OTBS ACHS, NOVOLIN R SLIDING SCALE, NYSTATIN POWDER BID, AND ACETAMINOPHEN 1G IV Q6H PRN. SURGICAL CONSULT (2) Gangrene of toe of left foot Status: Acute (3) UTI (urinary tract infection) Status: Acute Qualifiers: Urinary tract infection type: acute cystitis Hematuria presence: without hematuria Qualified Code(s): N30.00 - Acute cystitis without hematuria (4) AMS (altered mental status) Status: Acute Qualifiers: Altered mental status type: stupor Qualified Code(s): R40.1 - Stupor (5) CKD (chronic kidney disease) stage 4, GFR 15-29 ml/min Status: Chronic (6) CHF (congestive heart failure) Status: Acute Qualifiers: Heart failure type: unspecified Heart failure chronicity: acute on chronic Qualified Code(s): I50.9 - Heart failure, unspecified (7) DM II (diabetes mellitus, type II), controlled Status: Chronic Qualifiers: Diabetes mellitus longterm insulin use: unspecified terminal manager insulin use status Diabetes mellitus complication status: with hyperglycemia Qualified Code(s): E11.65 - Type 2 diabetes mellitus with hyperglycemia
[2021-12-24] MEDS: [UNRECOGNIZED DRUG - REMARK] XX SCH (16:51)
[2021-12-24] MEDS: LOVENOX INJ 30 MG SYR SC SCH (20:17)
[2021-12-24] MEDS ORDERED: KETAMINE HCL ONE (21:29)
[2021-12-24] MEDS ORDERED: PRECEDEX INJ VIAL IVP ONE (21:29)
[2021-12-24] MEDS ORDERED: ULTANE GAS IN ONE (21:29)
[2021-12-25] MEDS ORDERED: PROVENTIL NEB TX 0.083% 2.5MG/ 3ML ONE (02:20)
[2021-12-25] MEDS: PROVENTIL NEB TX 0.083% 2.5MG/ 3ML NEB PRN ×2 (02:28→08:54)
[2021-12-25] MEDS: ATIVAN TAB 1 MG PO PRN ×2 (02:37→20:38)
[2021-12-25] MEDS: DILAUDID INJ IVP PRN ×3 (02:37→21:20)
[2021-12-25 04:43] LABS: BASOPHILS % (AUTO) 0.2 % (0.2-1.0); EOSINOPHILS % (AUTO) 0.1 % (0.9-2.9); HEMATOCRIT 24.1 % (36.0-47.0); HEMOGLOBIN 7.6 g/dL (12.0-16.0); LYMPHOCYTES % (AUTO) 6.7 % (21.0-51.0); MEAN CORPUSCULAR HEMOGLOBIN 27.6 pg (27.0-34.0); MEAN CORPUSCULAR HGB CONC 31.5 g/dL (33.0-35.0); MEAN CORPUSCULAR VOLUME 87.6 fL (80.0-100.0); MEAN PLATELET VOLUME 7.7 fL (7.4-11.0); MONOCYTES # (AUTO) 0.5 x10^3/uL (0.3-0.8); MONOCYTES % (AUTO) 3.1 % (0.0-13.0); NEUTROPHILS # (AUTO) 13.5 x10^3/uL (2.2-4.8); NEUTROPHILS % (AUTO) 89.9 % (42.0-75.0); RED BLOOD COUNT 2.75 X10^6/uL (3.5-5.4); RED CELL DISTRIBUTION WIDTH 15.3 % (11.6-16.5)
[2021-12-25 04:54] LABS: ALBUMIN 2.1 g/dL (3.4-5.0); CALCIUM 7.5 mg/dL (8.5-10.1); CARBON DIOXIDE 17.2 mmol/L (21-32); CREATININE 2.19 mg/dL (0.55-1.02); TOTAL PROTEIN 6.5 g/dL (6.4-8.2)
[2021-12-25] MEDS: NS 1,000 ML IV 1,000 ML IV SCH ×3 (05:43→18:12)
[2021-12-25] MEDS: NovoLIN R (or HumuLIN R) SUBCUT PRN (06:04)
[2021-12-25] MEDS: FORTAZ or TAZICEF VIAL INJ 2 G in NS 100 ML IV 100 ML IV SCH ×2 (08:06→20:34)
[2021-12-25] MEDS: LASIX IVP SCH ×2 (09:03→20:37)
[2021-12-25] MEDS: ALBUMIN HUMAN 25%- 100 ML 100 ML IV SCH (09:10)
[2021-12-25] MEDS: NYSTATIN POWDER TOP SCH ×2 (09:10→20:38)
--- NOTE | 2021-12-25 09:55 | DR.PROGNOT ---
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 feeling better today .. less pain . dressings intact .. no drainge . BS is 313 ,, WBC 14 . afebrile .. - Past Medical Family Social History Past Med/Fam/Surg Hx: No changes since H&P Allergies: Allergies No Known Drug Allergies Allergy (Verified 12/05/21 21:12) - Review Of Systems ROS: No change since H&P - Vital Signs Vital Signs: Temperature 97.4 F Pulse Rate [Apical] 89 Pulse Rate 91 Respiratory Rate 20 Blood Pressure [Right Arm] 101/49 Blood Pressure 133/61 O2 Sat by Pulse Oximetry 91 - Physical Exam Oriented: Normal, Person Eyes: Normal Ear: Normal Nose: Normal Throat: Normal Respiratory: Normal Cardiovascular: Normal : Normal GI:Auscultation: Normal GI:Palpation: Normal GI: Tenderness: Normal Skin: Red, Tender, Hot, Wound (LEFT FOOT WOUND AND GANGRENOUS CHANGE, RIGHT LEG STUMP CELLULITIS), Other (dressing intact . no draiange ..) Musculoskeletal: Normal Psychiatric: Normal Mood Description: Calm Affect: Normal Speech Pattern: Inappropriate - Laboratory and Diagnostics Result Diagrams: 12/25/21 04:01 12/25/21 04:01 Labs: 12/22/21 23:26 Blood Blood Culture - Preliminary 12/22/21 23:40 Blood Blood Culture - Preliminary 12/22/21 23:14 Foot - Left Wound Gram Stain - Final 12/22/21 23:14 Foot - Left Wound Culture - Preliminary 12/22/21 23:25 Urine,Catheterized Urine Culture - Preliminary Laboratory WBC 15.0 X10^3/uL (3.6-10.0) H 12/25/21 04:01 RBC 2.75 X10^6/uL (3.5-5.4) L 12/25/21 04:01 Hgb 7.6 g/dL (12.0-16.0) L 12/25/21 04:01 Hct 24.1 % (36.0-47.0) L 12/25/21 04:01 MCV 87.6 fL (80.0-100.0) 12/25/21 04:01 MCH 27.6 pg (27.0-34.0) 12/25/21 04:01 MCHC 31.5 g/dL (33.0-35.0) L 12/25/21 04:01 RDW 15.3 % (11.6-16.5) 12/25/21 04:01 Plt Count 435 X10^3/uL (150.0-450.0) 12/25/21 04:01 MPV 7.7 fL (7.4-11.0) 12/25/21 04:01 Neut % (Auto) 89.9 % (42.0-75.0) H 12/25/21 04:01 Lymph % (Auto) 6.7 % (21.0-51.0) L 12/25/21 04:01 [place] % (Auto) 3.1 % (0.0-13.0) 12/25/21 04:01 Eos % (Auto) 0.1 % (0.9-2.9) L 12/25/21 04:01 Baso % (Auto) 0.2 % (0.2-1.0) 12/25/21 04:01 Neut # (Auto) 13.5 x10^3/uL (2.2-4.8) H 12/25/21 04:01 Lymph # (Auto) 1.0 X10^3/uL (1.3-2.9) L 12/25/21 04:01 [place] # (Auto) 0.5 x10^3/uL (0.3-0.8) 12/25/21 04:01 Eos # (Auto) 0.0 x10^3/uL (0.0-0.2) 12/25/21 04:01 Baso # (Auto) 0.0 X10^3/uL (0.0-0.1) 12/25/21 04:01 Absolute Nucleated RBC 0.0 /100WBC 12/25/21 04:01 Sodium 137 mmol/L (136-145) 12/25/21 04:01 Corrected Sodium 142 mmol/L (136-145) 12/25/21 04:01 Potassium 5.1 mmol/L (3.5-5.1) 12/25/21 04:01 Chloride 106 mmol/L (98-107) 12/25/21 04:01 Carbon Dioxide 17.2 mmol/L (21-32) L 12/25/21 04:01 BUN 29 mg/dL (7-18) H 12/25/21 04:01 Creatinine 2.19 mg/dL (0.55-1.02) H 12/25/21 04:01 Est GFR (MDRD) Af Amer 29 (>60) L 12/25/21 04:01 Est GFR (MDRD) Non-Af 24 (>60) L 12/25/21 04:01 Glucose 297 mg/dL (65-99) H 12/25/21 04:01 POC Glucose (mg/dL) 313 mg/dL (65-99) H 12/25/21 05:59 Lactic Acid 0.5 mmol/L (0.4-2.0) 12/23/21 00:45 Calcium 7.5 mg/dL (8.5-10.1) L 12/25/21 04:01 Corrected Calcium 9.0 mg/dL (8.5-10.1) 12/25/21 04:01 Total Bilirubin 0.20 mg/dL (0.2-1.0) 12/25/21 04:01 AST 24 Units/L (15-37) 12/25/21 04:01 ALT 11 Units/L (12-78) L 12/25/21 04:01 Alkaline Phosphatase 236 Units/L (46-116) H 12/25/21 04:01 C-Reactive Protein 254.70 mg/L (0-3.0) H 12/25/21 04:01 B-Natriuretic Peptide 1310 pg/mL (0-79) H* 12/25/21 04:01 Total Protein 6.5 g/dL (6.4-8.2) 12/25/21 04:01 Albumin 2.1 g/dL (3.4-5.0) L 12/25/21 04:01 Globulin 4.4 g/dL (2.5-4.5) 12/25/21 04:01 Albumin/Globulin Ratio 0.5 Ratio (1.1-2.1) L 12/25/21 04:01 TSH 3rd Generation 2.645 uIU/mL (0.358-3.74) 12/22/21 23:26 Specimen Type Catherized urine 12/22/21 23:25 Urine Color Yellow (YELLOW) 12/22/21 23:25 Urine Appearance Cloudy (CLEAR) 12/22/21 23:25 Urine pH 7.0 (5.0 - 8.0) 12/22/21 23:25 Ur Specific [place] 1.005 (1.000-1.030) 12/22/21 23:25 Urine Protein 2+ (NEGATIVE) 12/22/21 23:25 Urine Glucose (UA) Negative (NEGATIVE) 12/22/21 23:25 Urine Ketones Negative (NEGATIVE) 12/22/21 23:25 Urine Blood 2+ (NEGATIVE) 12/22/21 23:25 Urine Nitrite Negative (NEGATIVE) 12/22/21 23: Urine Bilirubin Negative (NEGATIVE) 12/22/21 23: Urine Urobilinogen Normal (NORMAL) 12/22/21 23:25 Ur Leukocyte Esterase 3+ (NEGATIVE) 12/22/21 23:25 Urine RBC 3-5 /HPF (0-3) A 12/22/21 23:25 Urine WBC Tntc /HPF (0-5) A 12/22/21 23:25 Ur Squamous Epith Cells Rare /HPF (NEGATIVE) 12/22/21 23:25 Urine Bacteria 4+ /HPF (NEGATIVE) 12/22/21 23:25 Ur Culture Indicated? 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 s/p amputation . DM with complications .. sme local care , IV ABT and diabetic control . - Problem Patient Problems: Patient Problems Bullous pemphigoid (Acute) L12.0 AMS (altered mental status) (Acute) R41.82 UTI (urinary tract infection) (Acute) N39.0 Gangrene of toe of left foot (Acute) I96 Cellulitis of foot, left (Acute) L03.116 CKD (chronic kidney disease) stage 4, GFR 15-29 ml/min (Chronic) N18.4 Hypothyroidism (acquired) (Acute) E03.9 Bilateral lower leg cellulitis (Acute) L03.116, L03.115 CHF (congestive heart failure) (Acute) I50.9 DM II (diabetes mellitus, type II), controlled (Chronic) E11.9
[2021-12-25] MEDS: LEVAQUIN PREMIX IV 750 MG 750 MG/150 ML BAG IV SCH (10:52)
[2021-12-25] MEDS: [UNRECOGNIZED DRUG - REMARK] XX SCH (11:05)
[2021-12-25] MEDS: BENADRYL INJ 50 MG VIAL IVP PRN ×2 (11:21→20:38)
[2021-12-25] MEDS: LOVENOX INJ 30 MG SYR SC SCH (20:37)
[2021-12-26 04:47] LABS: EOSINOPHILS # (AUTO) 0.1 x10^3/uL (0.0-0.2); MEAN PLATELET VOLUME 7.4 fL (7.4-11.0)
[2021-12-26 04:53] LABS: ALBUMIN 2.2 g/dL (3.4-5.0); CALCIUM 7.4 mg/dL (8.5-10.1); CARBON DIOXIDE 19.9 mmol/L (21-32); COR CA(FOR HYPOALB) 8.8 mg/dL (8.5-10.1); CREATININE 2.43 mg/dL (0.55-1.02); TOTAL PROTEIN 6.2 g/dL (6.4-8.2)
[2021-12-26 05:00] LABS: BASOPHILS % (AUTO) 0.2 % (0.2-1.0); MONOCYTES # (AUTO) 0.7 x10^3/uL (0.3-0.8)
[2021-12-26 05:04] LABS: EOSINOPHILS % (AUTO) 0.3 % (0.9-2.9); HEMATOCRIT 22.1 % (36.0-47.0); LYMPHOCYTES # (AUTO) 1.2 X10^3/uL (1.3-2.9); LYMPHOCYTES % (AUTO) 7.8 % (21.0-51.0); MEAN CORPUSCULAR HEMOGLOBIN 27.1 pg (27.0-34.0); MEAN CORPUSCULAR HGB CONC 31.7 g/dL (33.0-35.0); MEAN CORPUSCULAR VOLUME 85.6 fL (80.0-100.0); MONOCYTES % (AUTO) 4.7 % (0.0-13.0); NEUTROPHILS # (AUTO) 13.4 x10^3/uL (2.2-4.8); RED BLOOD COUNT 2.58 X10^6/uL (3.5-5.4); RED CELL DISTRIBUTION WIDTH 15.1 % (11.6-16.5); WHITE BLOOD COUNT 15.4 X10^3/uL (3.6-10.0)
[2021-12-26] MEDS: NS 1,000 ML IV 1,000 ML IV SCH ×3 (05:09→20:20)
[2021-12-26] MEDS: PROVENTIL NEB TX 0.083% 2.5MG/ 3ML NEB PRN (08:18)
[2021-12-26] MEDS: FORTAZ or TAZICEF VIAL INJ 2 G in NS 100 ML IV 100 ML IV SCH ×2 (08:22→20:20)
[2021-12-26] MEDS: DILAUDID INJ IVP PRN (08:58)
[2021-12-26] MEDS: NYSTATIN POWDER TOP SCH ×2 (08:59→20:21)
[2021-12-26] MEDS ORDERED: LASIX IVP ONE ×2 (08:59→21:59)
[2021-12-26] MEDS: ALBUMIN HUMAN 25%- 100 ML 100 ML IV SCH (09:41)
--- NOTE | 2021-12-26 10:46 | DR.PROGNOT ---
Hospital Progress Notes - Progress Note for Day of: Progress Note Date: 12/26/21 - Chief Complaint Chief Complaint: was SOB last night and this am on Bipap .. 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 dressings intact .. no drainge . - Past Medical Family Social History Past Med/Fam/Surg Hx: No changes since H&P Allergies: Allergies No Known Drug Allergies Allergy (Verified 12/05/21 21:12) - Review Of Systems ROS: No change since H&P - Vital Signs Vital Signs: Temperature 97.3 F Pulse Rate [Apical] 89 Pulse Rate 96 Respiratory Rate 16 Blood Pressure [Right Arm] 101/49 Blood Pressure 93/50 O2 Sat by Pulse Oximetry 96 - Physical Exam Oriented: Normal, Person Eyes: Normal Ear: Normal Nose: Normal Throat: Normal Respiratory: Normal Cardiovascular: Normal : Normal GI:Auscultation: Normal GI:Palpation: Normal GI: Tenderness: Normal Skin: Red, Tender, Hot, Wound, Other (dressing intact . no draiange ..) Musculoskeletal: Foot, Swelling, Tender Psychiatric: Normal Mood Description: Calm Affect: Normal Speech Pattern: Appropriate, Delayed - Laboratory and Diagnostics Result Diagrams: 12/26/21 04:15 12/26/21 04:15 Labs: 12/22/21 23:14 Foot - Left Wound Gram Stain - Final 12/22/21 23:14 Foot - Left Wound Culture - Final Proteus Vulgaris Escherichia Coli 12/22/21 23:25 Urine,Catheterized Urine Culture - Final Enterobacter Cloacae 12/22/21 23:26 Blood Blood Culture - Preliminary 12/22/21 23:40 Blood Blood Culture - Preliminary Laboratory WBC 15.4 X10^3/uL (3.6-10.0) H 12/26/21 04:15 RBC 2.58 X10^6/uL (3.5-5.4) L 12/26/21 04:15 Hgb 7.0 g/dL (12.0-16.0) L 12/26/21 04:15 Hct 22.1 % (36.0-47.0) L 12/26/21 04:15 MCV 85.6 fL (80.0-100.0) 12/26/21 04:15 MCH 27.1 pg (27.0-34.0) 12/26/21 04:15 MCHC 31.7 g/dL (33.0-35.0) L 12/26/21 04:15 RDW 15.1 % (11.6-16.5) 12/26/21 04:15 Plt Count 343 X10^3/uL (150.0-450.0) 12/26/21 04:15 MPV 7.4 fL (7.4-11.0) 12/26/21 04:15 Neut % (Auto) 87.0 % (42.0-75.0) H 12/26/21 04:15 Lymph % (Auto) 7.8 % (21.0-51.0) L 12/26/21 04:15 [place] % (Auto) 4.7 % (0.0-13.0) 12/26/21 04:15 Eos % (Auto) 0.3 % (0.9-2.9) L 12/26/21 04:15 Baso % (Auto) 0.2 % (0.2-1.0) 12/26/21 04:15 Neut # (Auto) 13.4 x10^3/uL (2.2-4.8) H 12/26/21 04:15 Lymph # (Auto) 1.2 X10^3/uL (1.3-2.9) L 12/26/21 04:15 [place] # (Auto) 0.7 x10^3/uL (0.3-0.8) 12/26/21 04:15 Eos # (Auto) 0.1 x10^3/uL (0.0-0.2) 12/26/21 04:15 Baso # (Auto) 0.0 X10^3/uL (0.0-0.1) 12/26/21 04:15 Absolute Nucleated RBC 0.1 /100WBC 12/26/21 04:15 Sodium 142 mmol/L (136-145) 12/26/21 04:15 Corrected Sodium 144 mmol/L (136-145) 12/26/21 04:15 Potassium 4.3 mmol/L (3.5-5.1) 12/26/21 04:15 Chloride 111 mmol/L (98-107) H 12/26/21 04:15 Carbon Dioxide 19.9 mmol/L (21-32) L 12/26/21 04:15 BUN 37 mg/dL (7-18) H 12/26/21 04:15 Creatinine 2.43 mg/dL (0.55-1.02) H 12/26/21 04:15 Est GFR (MDRD) Af Amer 26 (>60) L 12/26/21 04:15 Est GFR (MDRD) Non-Af 22 (>60) L 12/26/21 04:15 Glucose 200 mg/dL (65-99) H 12/26/21 04:15 POC Glucose (mg/dL) 213 mg/dL (65-99) H 12/26/21 00:38 Lactic Acid 0.5 mmol/L (0.4-2.0) 12/23/21 00:45 Calcium 7.4 mg/dL (8.5-10.1) L 12/26/21 04:15 Corrected Calcium 8.8 mg/dL (8.5-10.1) 12/26/21 04:15 Total Bilirubin 0.10 mg/dL (0.2-1.0) L 12/26/21 04:15 AST 16 Units/L (15-37) 12/26/21 04:15 ALT 7 Units/L (12-78) L 12/26/21 04:15 Alkaline Phosphatase 189 Units/L (46-116) H 12/26/21 04:15 C-Reactive Protein 144.20 mg/L (0-3.0) H 12/26/21 04:15 B-Natriuretic Peptide 1410 pg/mL (0-79) H* 12/26/21 04:15 Total Protein 6.2 g/dL (6.4-8.2) L 12/26/21 04:15 Albumin 2.2 g/dL (3.4-5.0) L 12/26/21 04:15 Globulin 4.0 g/dL (2.5-4.5) 12/26/21 04:15 Albumin/Globulin Ratio 0.6 Ratio (1.1-2.1) L 12/26/21 04:15 TSH 3rd Generation 2.645 uIU/mL (0.358-3.74) 12/22/21 23:26 Specimen Type Catherized urine 12/22/21 23:25 Urine Color Yellow (YELLOW) 12/22/21 23:25 Urine Appearance Cloudy (CLEAR) 12/22/21 23:25 Urine pH 7.0 (5.0 - 8.0) 12/22/21 23:25 Ur Specific [place] 1.005 (1.000-1.030) 12/22/21 23:25 Urine Protein 2+ (NEGATIVE) 12/22/21 23:25 Urine Glucose (UA) Negative (NEGATIVE) 12/22/21 23:25 Urine Ketones Negative (NEGATIVE) 12/22/21 23: Urine Blood 2+ (NEGATIVE) 12/22/21 23: Urine Nitrite Negative (NEGATIVE) 12/22/21 23: Urine Bilirubin Negative (NEGATIVE) 12/22/21 23: Urine Urobilinogen Normal (NORMAL) 12/22/21 23:25 Ur Leukocyte Esterase 3+ (NEGATIVE) 12/22/21 23:25 Urine RBC 3-5 /HPF (0-3) A 12/22/21 23: Urine WBC Tntc /HPF (0-5) A 12/22/21 23:25 Ur Squamous Epith Cells Rare /HPF (NEGATIVE) 12/22/21 23:25 Urine Bacteria 4+ /HPF (NEGATIVE) 12/22/21 23:25 Ur Culture Indicated? 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 s/p amputation . DM with complications .. sme pulmonary care , IV ABT and diabetic control . - Problem Patient Problems: Patient Problems Bullous pemphigoid (Acute) L12.0 AMS (altered mental status) (Acute) R41.82 UTI (urinary tract infection) (Acute) N39.0 Gangrene of toe of left foot (Acute) I96 Cellulitis of foot, left (Acute) L03.116 CKD (chronic kidney disease) stage 4, GFR 15-29 ml/min (Chronic) N18.4 Hypothyroidism (acquired) (Acute) E03.9 Bilateral lower leg cellulitis (Acute) L03.116, L03.115 CHF (congestive heart failure) (Acute) I50.9 DM II (diabetes mellitus, type II), controlled (Chronic) E11.9
[2021-12-26] MEDS: [UNRECOGNIZED DRUG - REMARK] XX SCH (11:06)
[2021-12-26] MEDS: BENADRYL INJ 50 MG VIAL IVP PRN (12:06)
[2021-12-26] MEDS ORDERED: NS 250 ML IV 250 ML IV ONE (16:20)
[2021-12-26] MEDS: LOVENOX INJ 30 MG SYR SC SCH (20:20)
[2021-12-26 22:56] LABS: HEMATOCRIT 24.3 % (36.0-47.0)
[2021-12-27] MEDS: DILAUDID INJ IVP PRN ×5 (01:18→22:35)
[2021-12-27 04:43] LABS: BASOPHILS # (AUTO) 0.1 X10^3/uL (0.0-0.1); BASOPHILS % (AUTO) 0.4 % (0.2-1.0); EOSINOPHILS # (AUTO) 0.1 x10^3/uL (0.0-0.2); EOSINOPHILS % (AUTO) 0.4 % (0.9-2.9); HEMATOCRIT 23.9 % (36.0-47.0); HEMOGLOBIN 7.8 g/dL (12.0-16.0); MEAN CORPUSCULAR HEMOGLOBIN 27.6 pg (27.0-34.0); MEAN CORPUSCULAR HGB CONC 32.5 g/dL (33.0-35.0); MEAN PLATELET VOLUME 7.7 fL (7.4-11.0); MONOCYTES # (AUTO) 0.9 x10^3/uL (0.3-0.8); MONOCYTES % (AUTO) 6.4 % (0.0-13.0); NEUTROPHILS # (AUTO) 12.2 x10^3/uL (2.2-4.8); NEUTROPHILS % (AUTO) 85.8 % (42.0-75.0); RED BLOOD COUNT 2.82 X10^6/uL (3.5-5.4); RED CELL DISTRIBUTION WIDTH 15.1 % (11.6-16.5); WHITE BLOOD COUNT 14.2 X10^3/uL (3.6-10.0)
[2021-12-27 04:58] LABS: ALBUMIN 2.3 g/dL (3.4-5.0); CALCIUM 7.6 mg/dL (8.5-10.1); CARBON DIOXIDE 22.4 mmol/L (21-32); CREATININE 2.28 mg/dL (0.55-1.02); TOTAL PROTEIN 6.5 g/dL (6.4-8.2)
--- NOTE | 2021-12-27 06:31 | RAD ---
HISTORYShortness of breathSTUDYChest AP [id number] heart is enlarged. There has been interval development since the prior examination of bilateral upper lobe and right perihilar alveolar infiltrates. Findings could be consistent with multifocal pneumonia or asymmetric cardiogenic or noncardiogenic edema. Clinical and laboratory correlation is recommended. No pleural effusions are identified. Bony thorax is unremarkable.IMPRESSIONNo change cardiomegalyInterval development since the prior examination of bilateral upper lobe and right perihilar infiltrates which could be consistent either with multifocal pneumonia or asymmetric cardiogenic or noncardiogenic edema. Clinical and laboratory correlation is recommended.Electronically signed by: JANIE MARTINEZ (Dec 27, 2021 06:30:00)
[2021-12-27] MEDS ORDERED: DUONEB 0.5 MG/3 MG (3 mL) NEB ONE (08:23)
[2021-12-27] MEDS: ALBUMIN HUMAN 25%- 100 ML 100 ML IV SCH (08:24)
[2021-12-27] MEDS: FORTAZ or TAZICEF VIAL INJ 2 G in NS 100 ML IV 100 ML IV SCH (08:25)
[2021-12-27] MEDS: DUONEB 0.5 MG/3 MG (3 mL) NEB SCH ×4 (08:26→20:50)
[2021-12-27] MEDS: NYSTATIN POWDER TOP SCH ×2 (08:51→21:06)
[2021-12-27] MEDS: NS 1,000 ML IV 1,000 ML IV SCH ×2 (08:51→21:05)
--- NOTE | 2021-12-27 08:52 | PCM.PROG ---
Progress Note - Progress Note for Day of Date of Exam: 12/25/21 - Subjective Subjective: WAS ADMITTED FOR TREATMENT OF BILATERAL LOWER EXTREMITY CELLULITIS, GANGRENE OF THE LEFT FOOT, UTI, AND AMS. 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 SHE HAS A HISTORY OF CAD, CHF, AND DM II. TODAY, SHE IS LYING IN BED WITH EYES CLOSED ON MORNING R OUNDS. SHE AWAKENS TO VERBAL STIMULI. ON EXAMINATION TODAY, HEART IS REGULAR IN RATE AND RHYTHM. BILATERAL LUNGS NOTED WITH DIMINISHED LUNG SOUNDS THROUGHOUT. ABDOMEN IS OBESE, SOFT, AND NON-TENDER WITH NORMAL BOWEL SOUNDS NOTED IN ALL QUADRANTS. RIGHT LOWER EXTREMITY STUMP NOTED WITH MILD ERYTHEMA. SURGICAL DRESSING NOTED TO STUMP OF LEFT LEG. HER VITALS THIS MORNING ARE: 97.4-91-22-94%-124/58. LABS WERE OBTAINED. WBC 15.0, RBC 2.75, HGB 7.6, HCT 24.1, PLT COUNT 435, SODIUM 137, POTASSIUM 5.1, CHLORIDE 106, BUN 29, CREATININE 2.19, GLUCOSE 297, CALCIUM 7.5, AST 24, ALT 11, ALK PHOS 236, CRP 254.70, BNP 1310, TOTAL PROTEIN 6.5, ALBUMIN 2.1. BLOOD GLUCOSE LEVELES HAVE BEEN STABLE SINCE YESTERDAY. BLOOD CULTURES ARE PENDING. URINE CULTURE REVEALED GROWTH OF ENTEROBACTER CLOACAE. WOUND CULTURE REVEALED GROWTH OF PROTEUS VULGARIS AND E.COLI. DR. ADAMS IS FOLLOWING PATIENT FOR POST-OP CARE AND DRESSING CHANGES. SHE IS CURRENTLY RECEIVING NORMAL SALINE AT 30ML/HR, LEVAQUIN 750MG IV Q48H, F ORTAZ 2G IV BID, ALBUMIN 25% IV DAILY, OTBS ACHS, NOVOLIN R SLIDING SCALE, NYSTATIN POWDER BID, AND ACETAMINOPHEN 1G IV Q6H PRN. DUE TO INCREASING BNP, WE WILL ADD LASIX 20MG IV BID X 2 DOSES AND REEVALUATE IN THE MORNING. OTHERWISE, WE PLAN TO FOLLOW-UP WITH AM LABS AND CONTINUE TO MONITOR. TIME SPENT ON CLINICAL ASSESSMENT, REVIWING LABS AND IMAGING, DECISION MAKING, AND DOCUMENTATION GREATER THAN 45 MINUTES. - Past Medical Family Social History Past Med/Fam/Surg Hx: No changes since H&P Allergies: Allergies No Known Drug Allergies Allergy (Verified 12/05/21 21:12) - Review of Systems ROS: No change since H&P - Vital Signs and I&O's Vital Signs: Temperature 98.5 F Pulse Rate [Apical] 89 Pulse Rate 90 Respiratory Rate 22 Blood Pressure [Right Arm] 101/49 Blood Pressure 170/74 O2 Sat by Pulse Oximetry 90 Intake and Output: Intake & Output 12/24/21 12/25/21 12/26/21 12/27/21 11:59 11:59 11:59 11:59 Intake Total 2150 / 2150 3659 / 3659 1487 / 1487 1171 / 1171 Output Total 300 / 300 1774 / 1774 1200 / 1200 3250 / 3250 Balance 1850 / 1850 1885 / 1885 287 / 287 -2078 / -2078 - Physical Exam Oriented: Normal, Person Eyes: Normal Ear: Normal Nose: Normal Throat: Normal Respiratory: Normal Cardiovascular: Normal : Normal Auscultation: Bowel Sounds: Normal Palpation: Normal Tenderness: Normal Skin: Red, Tender, Hot, Wound, Other (dressing intact . no draiange ..) Musculoskeletal: Leg, Swelling, Tender Psychiatric: Normal Mood Description: Calm Affect: Normal Speech Pattern: Delayed - Laboratory and Diagnostics Result Diagrams: 12/27/21 04:01 12/27/21 04:01 Labs: 12/22/21 23:14 Foot - Left Wound Gram Stain - Final 12/22/21 23:14 Foot - Left Wound Culture - Final Proteus Vulgaris Escherichia Coli 12/22/21 23:25 Urine,Catheterized Urine Culture - Final Enterobacter Cloacae 12/22/21 23:26 Blood Blood Culture - Preliminary 12/22/21 23:40 Blood Blood Culture - Preliminary Laboratory WBC 14.2 X10^3/uL (3.6-10.0) H 12/27/21 04:01 RBC 2.82 X10^6/uL (3.5-5.4) L 12/27/21 04:01 Hgb 7.8 g/dL (12.0-16.0) L 12/27/21 04:01 Hct 23.9 % (36.0-47.0) L 12/27/21 04:01 MCV 85.0 fL (80.0-100.0) 12/27/21 04:01 MCH 27.6 pg (27.0-34.0) 12/27/21 04:01 MCHC 32.5 g/dL (33.0-35.0) L 12/27/21 04:01 RDW 15.1 % (11.6-16.5) 12/27/21 04:01 Plt Count 295 X10^3/uL (150.0-450.0) 12/27/21 04:01 MPV 7.7 fL (7.4-11.0) 12/27/21 04:01 Neut % (Auto) 85.8 % (42.0-75.0) H 12/27/21 04:01 Lymph % (Auto) 7.0 % (21.0-51.0) L 12/27/21 04:01 [place] % (Auto) 6.4 % (0.0-13.0) 12/27/21 04:01 Eos % (Auto) 0.4 % (0.9-2.9) L 12/27/21 04:01 Baso % (Auto) 0.4 % (0.2-1.0) 12/27/21 04:01 Neut # (Auto) 12.2 x10^3/uL (2.2-4.8) H 12/27/21 04:01 Lymph # (Auto) 1.0 X10^3/uL (1.3-2.9) L 12/27/21 04:01 [place] # (Auto) 0.9 x10^3/uL (0.3-0.8) H 12/27/21 04:01 Eos # (Auto) 0.1 x10^3/uL (0.0-0.2) 12/27/21 04:01 Baso # (Auto) 0.1 X10^3/uL (0.0-0.1) 12/27/21 04:01 Absolute Nucleated RBC 0.1 /100WBC 12/27/21 04:01 Sodium 146 mmol/L (136-145) H 12/27/21 04:01 Corrected Sodium 148 mmol/L (136-145) H 12/27/21 04:01 Potassium 4.1 mmol/L (3.5-5.1) 12/27/21 04:01 Chloride 112 mmol/L (98-107) H 12/27/21 04:01 Carbon Dioxide 22.4 mmol/L (21-32) 12/27/21 04:01 BUN 33 mg/dL (7-18) H 12/27/21 04:01 Creatinine 2.28 mg/dL (0.55-1.02) H 12/27/21 04:01 Est GFR (MDRD) Af Amer 28 (>60) L 12/27/21 04:01 Est GFR (MDRD) Non-Af 23 (>60) L 12/27/21 04:01 Glucose 202 mg/dL (65-99) H 12/27/21 04:01 POC Glucose (mg/dL) 178 mg/dL (65-99) H 12/27/21 05:36 Lactic Acid 0.5 mmol/L (0.4-2.0) 12/23/21 00:45 Calcium 7.6 mg/dL (8.5-10.1) L 12/27/21 04:01 Corrected Calcium 9.0 mg/dL (8.5-10.1) 12/27/21 04:01 Total Bilirubin 0.30 mg/dL (0.2-1.0) 12/27/21 04:01 AST 14 Units/L (15-37) L 12/27/21 04:01 ALT 7 Units/L (12-78) L 12/27/21 04:01 Alkaline Phosphatase 183 Units/L (46-116) H 12/27/21 04:01 C-Reactive Protein 234.20 mg/L (0-3.0) H 12/27/21 04:01 B-Natriuretic Peptide 994 pg/mL (0-79) H* 12/27/21 04:01 Total Protein 6.5 g/dL (6.4-8.2) 12/27/21 04:01 Albumin 2.3 g/dL (3.4-5.0) L 12/27/21 04:01 Globulin 4.2 g/dL (2.5-4.5) 12/27/21 04:01 Albumin/Globulin Ratio 0.5 Ratio (1.1-2.1) L 12/27/21 04:01 TSH 3rd Generation 2.645 uIU/mL (0.358-3.74) 12/22/21 23:26 Specimen Type Catherized urine 12/22/21 23:25 Urine Color Yellow (YELLOW) 12/22/21 23:25 Urine Appearance Cloudy (CLEAR) 12/22/21 23:25 Urine pH 7.0 (5.0 - 8.0) 12/22/21 23:25 Ur Specific [place] 1.005 (1.000-1.030) 12/22/21 23:25 Urine Protein 2+ (NEGATIVE) 12/22/21 23:25 Urine Glucose (UA) Negative (NEGATIVE) 12/22/21 23: Urine Ketones Negative (NEGATIVE) 12/22/21 23: Urine Blood 2+ (NEGATIVE) 12/22/21 23: Urine Nitrite Negative (NEGATIVE) 12/22/21 23: Urine Bilirubin Negative (NEGATIVE) 12/22/21 23:25 Urine Urobilinogen Normal (NORMAL) 12/22/21 23:25 Ur Leukocyte Esterase 3+ (NEGATIVE) 12/22/21 23:25 Urine RBC 3-5 /HPF (0-3) A 12/22/21 23: Urine WBC Tntc /HPF (0-5) A 12/22/21 23:25 Ur Squamous Epith Cells Rare /HPF (NEGATIVE) 12/22/21 23:25 Urine Bacteria 4+ /HPF (NEGATIVE) 12/22/21 23:25 Ur Culture Indicated? Yes/culture set up 12/22/21 23:25 SARS-CoV-2 (PCR) Negative (NEGATIVE) 12/23/21 00:14 Influenza Type A (PCR) Negative (NEGATIVE) 12/23/21 00:14 Influenza Type B (PCR) Negative (NEGATIVE) 12/23/21 00:14 RSV (PCR) Negative (NEGATIVE) 12/23/21 00:14 Tissue Pathology To follow 12/24/21 11:33 Blood Type O POSITIVE 12/26/21 09:12 Antibody Screen Negative 12/26/21 09:12 Crossmatch See Detail 12/26/21 09:12 - Plan (1) Bilateral lower leg cellulitis Status: Acute Plan: NORMAL SALINE AT 30ML/HR, LEVAQUIN 750MG IV Q48H, FORTAZ 2G IV BID, ALBUMIN 25% IV DAILY, OTBS ACHS, NOVOLIN R SLIDING SCALE, NYSTATIN POWDER BID, AND ACETAMINOPHEN 1G IV Q6H PRN. LASIX 20MG IV BID X 2 DOSES (2) Gangrene of toe of left foot Status: Acute (3) UTI (urinary tract infection) Status: Acute Qualifiers: Urinary tract infection type: acute cystitis Hematuria presence: without hematuria Qualified Code(s): N30.00 - Acute cystitis without hematuria (4) AMS (altered mental status) Status: Acute Qualifiers: Altered mental status type: stupor Qualified Code(s): R40.1 - Stupor (5) CKD (chronic kidney disease) stage 4, GFR 15-29 ml/min Status: Chronic (6) CHF (congestive heart failure) Status: Acute Qualifiers: Heart failure type: unspecified Heart failure chronicity: acute on chronic Qualified Code(s): I50.9 - Heart failure, unspecified (7) DM II (diabetes mellitus, type II), controlled Status: Chronic Qualifiers: Diabetes mellitus shelter insulin use: unspecified shelter insulin use status Diabetes mellitus complication status: with hyperglycemia Qualified Code(s): E11.65 - Type 2 diabetes mellitus with hyperglycemia
[2021-12-27] MEDS: LASIX IVP SCH ×2 (11:22→17:08)
[2021-12-27] MEDS: [UNRECOGNIZED DRUG - REMARK] XX SCH (11:22)
[2021-12-27] MEDS: LEVAQUIN PREMIX IV 750 MG 750 MG/150 ML BAG IV SCH (11:23)
--- NOTE | 2021-12-27 13:09 | PCM.PROG ---
Progress Note - Progress Note for Day of Date of Exam: 12/26/21 - Subjective Subjective: WAS ADMITTED FOR TREATMENT OF BILATERAL LOWER EXTREMITY CELLULITIS, GANGRENE OF THE LEFT FOOT, UTI, AND AMS. 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 SHE HAS A HISTORY OF CAD, CHF, AND DM II. TODAY, SHE IS LYING IN BED WITH EYES CLOSED ON MORNING R OUNDS. SHE AWAKENS TO VERBAL STIMULI. PATIENT DOES APPEAR TO HAVE LABORED BREATHING THIS MORNING. ON EXAMINATION TODAY, HEART IS REGULAR IN RATE AND RHYTHM. BILATERAL LUNGS NOTED WITH DIMINISHED LUNG SOUNDS THROUGHOUT. ABDOMEN IS OBESE, SOFT, AND NON-TENDER WITH NORMAL BOWEL SOUNDS NOTED IN ALL QUADRANTS. RIGHT LOWER EXTREMITY STUMP NOTED WITH MILD ERYTHEMA. SURGICAL DRESSING NOTED TO STUMP OF LEFT LEG. HER VITALS THIS MORNING ARE: 97.8-90-24-90%-138/60. LABS WERE OBTAINED. WBC 15.4, RBC 2.58, HGB 7.0, HCT 22.1, SODIUM 142, POTASSIUM 4.3, CHLORIDE 111, BUN 37, CREATININE 2.43, GLUCOSE 200, CALCIUM 7.4, AST 16, ALT 7, ALK PHOS 189, CRP 144.20, BNP 1410, TOTAL PROTEIN 6.2, ALBUMIN 2.2. BLOOD G LUCOSE LEVELES HAVE BEEN STABLE SINCE YESTERDAY. BLOOD CULTURES ARE PENDING. URINE CULTURE REVEALED GROWTH OF ENTEROBACTER CLOACAE. WOUND CULTURE REVEALED GROWTH OF PROTEUS VULGARIS AND E.COLI. DR. ADAMS IS FOLLOWING PATIENT FOR POST-OP CARE AND DRESSING CHANGES. SHE IS CURRENTLY RECEIVING NORMAL SALINE AT 30ML/HR, LEVAQUIN 750MG IV Q48H, FORTAZ 2G IV BID, ALBUMIN 25% IV DAILY, OTBS ACHS, NOVOLIN R SLIDING SCALE, NYSTATIN POWDER BID, AND ACETAMINOPHEN 1G IV Q6H PRN. DUE TO INCREASING BNP, WE WILL ADMINISTER LASIX 40MG IV X 1 DOSE. WE WILL TRANSFUSE 1 UNIT OF PACKED RED BLOOD CELLS AT 1600. AFTER INFUSION OF BLOOD, WE WILL ADMINISTER AN ADDITIONAL DOSE OF LASIX 40MG IV X 1. OTHERWISE, WE PLAN TO FOLLOW-UP WITH AM LABS AND CONTINUE TO MONITOR. TIME SPENT ON CLINICAL ASSESSMENT, REVIWING LABS AND IMAGING, DECISION MAKING, AND DOCUMENTATION GREATER THAN 45 MINUTES. - Past Medical Family Social History Past Med/Fam/Surg Hx: No changes since H&P Allergies: Allergies No Known Drug Allergies Allergy (Verified 12/05/21 21:12) - Review of Systems ROS: No change since H&P - Vital Signs and I&O's Vital Signs: Temperature 98.5 F Pulse Rate [Apical] 89 Pulse Rate 89 Respiratory Rate 16 Blood Pressure [Right Arm] 101/49 Blood Pressure 163/70 O2 Sat by Pulse Oximetry 97 Intake and Output: Intake & Output 12/25/21 12/26/21 12/27/21 12/28/21 11:59 11:59 11:59 11:59 Intake Total 3659 / 3659 1487 / 1487 1171 / 1171 Output Total 1774 / 1774 1200 / 1200 3250 / 3250 Balance 1885 / 188 287 / 287 -2078 / -2078 - Physical Exam Oriented: Normal, Person Eyes: Normal Ear: Normal Nose: Normal Throat: Normal Respiratory: Normal Cardiovascular: Normal : Normal Auscultation: Bowel Sounds: Normal Palpation: Normal Tenderness: Normal Skin: Red, Tender, Hot, Wound, Other (dressing intact . no draiange ..) Musculoskeletal: Leg, Swelling, Tender Psychiatric: Normal Mood Description: Calm Affect: Normal Speech Pattern: Delayed - Laboratory and Diagnostics Result Diagrams: 12/27/21 04:01 12/27/21 04:01 Labs: 12/22/21 23:14 Foot - Left Wound Gram Stain - Final 12/22/21 23:14 Foot - Left Wound Culture - Final Proteus Vulgaris Escherichia Coli 12/22/21 23:25 Urine,Catheterized Urine Culture - Final Enterobacter Cloacae 12/22/21 23:26 Blood Blood Culture - Preliminary 12/22/21 23:40 Blood Blood Culture - Preliminary Laboratory WBC 14.2 X10^3/uL (3.6-10.0) H 12/27/21 04:01 RBC 2.82 X10^6/uL (3.5-5.4) L 12/27/21 04:01 Hgb 7.8 g/dL (12.0-16.0) L 12/27/21 04:01 Hct 23.9 % (36.0-47.0) L 12/27/21 04:01 MCV 85.0 fL (80.0-100.0) 12/27/21 04:01 MCH 27.6 pg (27.0-34.0) 12/27/21 04:01 MCHC 32.5 g/dL (33.0-35.0) L 12/27/21 04:01 RDW 15.1 % (11.6-16.5) 12/27/21 04:01 Plt Count 295 X10^3/uL (150.0-450.0) 12/27/21 04:01 MPV 7.7 fL (7.4-11.0) 12/27/21 04:01 Neut % (Auto) 85.8 % (42.0-75.0) H 12/27/21 04:01 Lymph % (Auto) 7.0 % (21.0-51.0) L 12/27/21 04:01 [place] % (Auto) 6.4 % (0.0-13.0) 12/27/21 04:01 Eos % (Auto) 0.4 % (0.9-2.9) L 12/27/21 04:01 Baso % (Auto) 0.4 % (0.2-1.0) 12/27/21 04:01 Neut # (Auto) 12.2 x10^3/uL (2.2-4.8) H 12/27/21 04:01 Lymph # (Auto) 1.0 X10^3/uL (1.3-2.9) L 12/27/21 04:01 [place] # (Auto) 0.9 x10^3/uL (0.3-0.8) H 12/27/21 04:01 Eos # (Auto) 0.1 x10^3/uL (0.0-0.2) 12/27/21 04:01 Baso # (Auto) 0.1 X10^3/uL (0.0-0.1) 12/27/21 04:01 Absolute Nucleated RBC 0.1 /100WBC 12/27/21 04:01 Sodium 146 mmol/L (136-145) H 12/27/21 04:01 Corrected Sodium 148 mmol/L (136-145) H 12/27/21 04:01 Potassium 4.1 mmol/L (3.5-5.1) 12/27/21 04:01 Chloride 112 mmol/L (98-107) H 12/27/21 04:01 Carbon Dioxide 22.4 mmol/L (21-32) 12/27/21 04:01 BUN 33 mg/dL (7-18) H 12/27/21 04:01 Creatinine 2.28 mg/dL (0.55-1.02) H 12/27/21 04:01 Est GFR (MDRD) Af Amer 28 (>60) L 12/27/21 04:01 Est GFR (MDRD) Non-Af 23 (>60) L 12/27/21 04:01 Glucose 202 mg/dL (65-99) H 12/27/21 04:01 POC Glucose (mg/dL) 167 mg/dL (65-99) H 12/27/21 11:16 Lactic Acid 0.5 mmol/L (0.4-2.0) 12/23/21 00:45 Calcium 7.6 mg/dL (8.5-10.1) L 12/27/21 04:01 Corrected Calcium 9.0 mg/dL (8.5-10.1) 12/27/21 04:01 Total Bilirubin 0.30 mg/dL (0.2-1.0) 12/27/21 04:01 AST 14 Units/L (15-37) L 12/27/21 04:01 ALT 7 Units/L (12-78) L 12/27/21 04:01 Alkaline Phosphatase 183 Units/L (46-116) H 12/27/21 04:01 C-Reactive Protein 234.20 mg/L (0-3.0) H 12/27/21 04:01 B-Natriuretic Peptide 994 pg/mL (0-79) H* 12/27/21 04:01 Total Protein 6.5 g/dL (6.4-8.2) 12/27/21 04:01 Albumin 2.3 g/dL (3.4-5.0) L 12/27/21 04:01 Globulin 4.2 g/dL (2.5-4.5) 12/27/21 04:01 Albumin/Globulin Ratio 0.5 Ratio (1.1-2.1) L 12/27/21 04:01 TSH 3rd Generation 2.645 uIU/mL (0.358-3.74) 12/22/21 23:26 Specimen Type Catherized urine 12/22/21 23:25 Urine Color Yellow (YELLOW) 12/22/21 23:25 Urine Appearance Cloudy (CLEAR) 12/22/21 23:25 Urine pH 7.0 (5.0 - 8.0) 12/22/21 23:25 Ur Specific [place] 1.005 (1.000-1.030) 12/22/21 23:25 Urine Protein 2+ (NEGATIVE) 12/22/21 23:25 Urine Glucose (UA) Negative (NEGATIVE) 12/22/21 23:25 Urine Ketones Negative (NEGATIVE) 12/22/21 23:25 Urine Blood 2+ (NEGATIVE) 12/22/21 23:25 Urine Nitrite Negative (NEGATIVE) 12/22/21 23: Urine Bilirubin Negative (NEGATIVE) 12/22/21 23: Urine Urobilinogen Normal (NORMAL) 12/22/21 23:25 Ur Leukocyte Esterase 3+ (NEGATIVE) 12/22/21 23:25 Urine RBC 3-5 /HPF (0-3) A 12/22/21 23:25 Urine WBC Tntc /HPF (0-5) A 12/22/21 23:25 Ur Squamous Epith Cells Rare /HPF (NEGATIVE) 12/22/21 23:25 Urine Bacteria 4+ /HPF (NEGATIVE) 12/22/21 23:25 Ur Culture Indicated? Yes/culture set up 12/22/21 23:25 SARS-CoV-2 (PCR) Negative (NEGATIVE) 12/23/21 00:14 Influenza Type A (PCR) Negative (NEGATIVE) 12/23/21 00:14 Influenza Type B (PCR) Negative (NEGATIVE) 12/23/21 00:14 RSV (PCR) Negative (NEGATIVE) 12/23/21 00:14 Tissue Pathology To follow 12/24/21 11:33 Blood Type O POSITIVE 12/26/21 09:12 Antibody Screen Negative 12/26/21 09:12 Crossmatch See Detail 12/26/21 09:12 - Plan (1) Bilateral lower leg cellulitis Status: Acute Plan: NORMAL SALINE AT 30ML/HR, LEVAQUIN 750MG IV Q48H, FORTAZ 2G IV BID, ALBUMIN 25% IV DAILY, OTBS ACHS, NOVOLIN R SLIDING SCALE, NYSTATIN POWDER BID, AND ACETAMINOPHEN 1G IV Q6H PRN. (2) Gangrene of toe of left foot Status: Acute (3) Anemia Status: Acute Qualifiers: Anemia type: iron deficiency Iron deficiency anemia type: unspecified iron deficiency Qualified Code(s): D50.9 - Iron deficiency anemia, unspecified (4) UTI (urinary tract infection) Status: Acute Qualifiers: Urinary tract infection type: acute cystitis Hematuria presence: without hematuria Qualified Code(s): N30.00 - Acute cystitis without hematuria (5) AMS (altered mental status) Status: Acute Qualifiers: Altered mental status type: stupor Qualified Code(s): R40.1 - Stupor (6) CKD (chronic kidney disease) stage 4, GFR 15-29 ml/min Status: Chronic (7) CHF (congestive heart failure) Status: Acute Qualifiers: Heart failure type: unspecified Heart failure chronicity: acute on chronic Qualified Code(s): I50.9 - Heart failure, unspecified (8) DM II (diabetes mellitus, type II), controlled Status: Chronic Qualifiers: Diabetes mellitus prison insulin use: unspecified [place] insulin use status Diabetes mellitus complication status: with hyperglycemia Qualified Code(s): E11.65 - Type 2 diabetes mellitus with hyperglycemia
[2021-12-27 16:22] LABS: ABG ALLEN TEST POS; ABG BASE EXCESS -1.7 mmol/L (-2.0-2.0)
[2021-12-27] MEDS: LOVENOX INJ 30 MG SYR SC SCH (21:04)
[2021-12-27] MEDS: BENADRYL INJ 50 MG VIAL IVP PRN (21:08)
[2021-12-28] MEDS: DILAUDID INJ IVP PRN (04:51)
[2021-12-28 05:09] LABS: MEAN PLATELET VOLUME 8.2 fL (7.4-11.0)
[2021-12-28 05:12] LABS: BASOPHILS % (AUTO) 0.3 % (0.2-1.0); EOSINOPHILS # (AUTO) 0.1 x10^3/uL (0.0-0.2); EOSINOPHILS % (AUTO) 0.6 % (0.9-2.9); HEMOGLOBIN 8.4 g/dL (12.0-16.0); LYMPHOCYTES # (AUTO) 0.9 X10^3/uL (1.3-2.9); LYMPHOCYTES % (AUTO) 6.8 % (21.0-51.0); MEAN CORPUSCULAR HEMOGLOBIN 28.5 pg (27.0-34.0); MEAN CORPUSCULAR HGB CONC 33.6 g/dL (33.0-35.0); MEAN CORPUSCULAR VOLUME 84.9 fL (80.0-100.0); MONOCYTES # (AUTO) 0.9 x10^3/uL (0.3-0.8); MONOCYTES % (AUTO) 6.7 % (0.0-13.0); NEUTROPHILS # (AUTO) 11.7 x10^3/uL (2.2-4.8); NEUTROPHILS % (AUTO) 85.6 % (42.0-75.0); RED BLOOD COUNT 2.94 X10^6/uL (3.5-5.4); RED CELL DISTRIBUTION WIDTH 15.4 % (11.6-16.5); WHITE BLOOD COUNT 13.7 X10^3/uL (3.6-10.0)
[2021-12-28 05:28] LABS: CARBON DIOXIDE 22.5 mmol/L (21-32); CREATININE 2.3 mg/dL (0.55-1.02)
[2021-12-28 05:29] LABS: ALBUMIN 2.7 g/dL (3.4-5.0)
[2021-12-28 05:43] LABS: BAND NEUTROPHILS % 2 % (0-10); METAMYELOCYTES % 2
[2021-12-28 05:44] LABS: HYPOCHROMASIA SLIGHT; PLATELET MORPHOLOGY COMMENT NORMAL (NORMAL)
--- NOTE | 2021-12-28 06:27 | RAD ---
HISTORYF/U UTI, AMS, SOB Relevant Clinical InformationSTUDYCHEST, 1 VIEWCOMPARISON12/27/21FINDINGSPatient rotated. The cardiac silhouette is mildly enlarged.. Bilateral upper lobe and right perihilar infiltrats slightly improved. The bony thorax is unremarkable.IMPRESSIONImproving bilateral iinfiltrates .Electronically signed by: Nba Moulton (Dec 28, 2021 06:26:15)
[2021-12-28] MEDS: DUONEB 0.5 MG/3 MG (3 mL) NEB SCH ×4 (08:10→20:34)
[2021-12-28] MEDS: ALBUMIN HUMAN 25%- 100 ML 100 ML IV SCH (08:48)
[2021-12-28] MEDS: FORTAZ or TAZICEF VIAL INJ 2 G in NS 100 ML IV 100 ML IV SCH (08:48)
[2021-12-28] MEDS: NYSTATIN POWDER TOP SCH ×2 (08:49→21:08)
[2021-12-28] MEDS ORDERED: DILAUDID INJ IVP PRN (09:36)
[2021-12-28] MEDS ORDERED: BENADRYL INJ 50 MG VIAL IVP PRN (09:36)
[2021-12-28] MEDS: LASIX IVP SCH ×2 (10:38→21:08)
[2021-12-28] MEDS: OFIRMEV IV 1000 MG VIAL 1,000 MG/100 ML VIAL IV PRN ×2 (12:28→20:05)
[2021-12-28] MEDS: NovoLIN R (or HumuLIN R) SUBCUT PRN ×2 (12:30→16:34)
[2021-12-28] MEDS: [UNRECOGNIZED DRUG - REMARK] XX SCH (12:56)
[2021-12-28] MEDS: NS 1,000 ML IV 1,000 ML IV SCH (12:56)
[2021-12-28] MEDS: LOVENOX INJ 30 MG SYR SC SCH (21:05)
[2021-12-28] MEDS ORDERED: VANCOMYCIN IV *PREMIX 1 G/200 ML BAG 1 G/200 ML PIGGYBACK IV ONE (21:49)
[2021-12-28 22:18] LABS: BASOPHILS % (AUTO) 0.4 % (0.2-1.0); EOSINOPHILS % (AUTO) 0.1 % (0.9-2.9); HEMATOCRIT 21.9 % (36.0-47.0); HEMOGLOBIN 7.3 g/dL (12.0-16.0); LYMPHOCYTES # (AUTO) 0.8 X10^3/uL (1.3-2.9); LYMPHOCYTES % (AUTO) 8.1 % (21.0-51.0); MEAN CORPUSCULAR HEMOGLOBIN 28.3 pg (27.0-34.0); MEAN CORPUSCULAR HGB CONC 33.3 g/dL (33.0-35.0); MEAN CORPUSCULAR VOLUME 84.8 fL (80.0-100.0); MEAN PLATELET VOLUME 9.1 fL (7.4-11.0); MONOCYTES # (AUTO) 0.6 x10^3/uL (0.3-0.8); MONOCYTES % (AUTO) 5.6 % (0.0-13.0); NEUTROPHILS % (AUTO) 85.8 % (42.0-75.0); RED BLOOD COUNT 2.58 X10^6/uL (3.5-5.4); RED CELL DISTRIBUTION WIDTH 15.2 % (11.6-16.5); WHITE BLOOD COUNT 10.4 X10^3/uL (3.6-10.0)
[2021-12-28 22:30] LABS: LACTIC ACID 2.5 mmol/L (0.4-2.0)
[2021-12-28 22:41] LABS: ALBUMIN 2.9 g/dL (3.4-5.0); CALCIUM 7.9 mg/dL (8.5-10.1); CARBON DIOXIDE 20.2 mmol/L (21-32); COR CA(FOR HYPOALB) 8.8 mg/dL (8.5-10.1); CREATININE 3.41 mg/dL (0.55-1.02); TOTAL PROTEIN 6.9 g/dL (6.4-8.2)
[2021-12-28 23:14] LABS: INR 3.17 (0.8-1.3)
[2021-12-28] MEDS ORDERED: HEPARIN SODIUM INJ 5000 UNITS IVP ONE (23:45)
[2021-12-28] MEDS ORDERED: HEPARIN SODIUM INJ 5000 UNITS ONE (23:49)
[2021-12-29] MEDS: HEPARIN SODIUM IN D5W 25,000 UNITS/500 ML BAG IV PRN (00:03)
[2021-12-29] MEDS: NS 1,000 ML IV 1,000 ML IV SCH (00:36)
[2021-12-29] MEDS: OFIRMEV IV 1000 MG VIAL 1,000 MG/100 ML VIAL IV PRN (03:12)
[2021-12-29] MEDS: ZOFRAN INJ 4 MG VIAL IVP PRN ×2 (04:30→22:00)
--- NOTE | 2021-12-29 05:40 | RAD ---
HISTORYF/U SOB PNEUMONIA Relevant Clinical InformationSTUDYCHEST, 1 [id number]/2022FINDINGSThe trachea is midline. The cardiac silhouette is mildly enlarged.. Bilateral upper lobe and right perihilar infiltrates unchanged. The bony thorax is unremarkable.IMPRESSIONMild cardiomegaly.Bilateral upper lobe and right perihilar infiltrates unchanged from previous 12/28/2021Electronically signed by: Nba Moulton (Dec 29, 2021 05:39:25)
[2021-12-29] MEDS: NovoLIN R (or HumuLIN R) SUBCUT PRN ×4 (05:58→20:20)
[2021-12-29 06:11] LABS: BASOPHILS % (AUTO) 0.2 % (0.2-1.0); EOSINOPHILS % (AUTO) 0.1 % (0.9-2.9); HEMOGLOBIN 7.1 g/dL (12.0-16.0); LYMPHOCYTES # (AUTO) 1.2 X10^3/uL (1.3-2.9); LYMPHOCYTES % (AUTO) 9.7 % (21.0-51.0); MEAN CORPUSCULAR HGB CONC 32.5 g/dL (33.0-35.0); MEAN CORPUSCULAR VOLUME 86.3 fL (80.0-100.0); MEAN PLATELET VOLUME 9.2 fL (7.4-11.0); MONOCYTES # (AUTO) 0.7 x10^3/uL (0.3-0.8); MONOCYTES % (AUTO) 5.7 % (0.0-13.0); NEUTROPHILS # (AUTO) 10.6 x10^3/uL (2.2-4.8); NEUTROPHILS % (AUTO) 84.3 % (42.0-75.0); RED BLOOD COUNT 2.55 X10^6/uL (3.5-5.4); RED CELL DISTRIBUTION WIDTH 15.6 % (11.6-16.5); WHITE BLOOD COUNT 12.5 X10^3/uL (3.6-10.0)
[2021-12-29 06:34] LABS: ALBUMIN 2.8 g/dL (3.4-5.0); CALCIUM 7.5 mg/dL (8.5-10.1); CARBON DIOXIDE 16.4 mmol/L (21-32); COR CA(FOR HYPOALB) 8.5 mg/dL (8.5-10.1); CREATININE 3.74 mg/dL (0.55-1.02); TOTAL PROTEIN 6.7 g/dL (6.4-8.2)
--- NOTE | 2021-12-29 07:36 | CT ---
HISTORYCHANGE IN MENTAL STATUSSTUDYBRAIN W/O CONCOMPARISONCT brain from 12/22/2021.TECHNIQUEMultiple axial images of the head were performed from the skullbase to the vertex using standard departmental protocol. Sagittal and coronal reformatted images were performed. Dose reduction techniques including Automated Exposure Control (AEC) and adjustment of mA and kV were utilized.FINDINGSThe lateral ventricles and basilar cisterns are patent.No parenchymal mass or hematoma. Cortés-white differentiation appears acutely preserved. Age-appropriate brain volume. Mild low attenuation change in the subcortical and deep supratentorial white matter.No extra-axial collection.The globes are intact.No air fluid levels in the paranasal sinuses. No paranasal sinus wall thickening or sclerosis. Mastoid air cells are clear.The calvarium is intact.IMPRESSIONNo acute intracranial abnormality.Electronically signed by: Mayo Mercedes (Dec 29, 2021 07:34:32)
[2021-12-29] MEDS ORDERED: NS 1/2 1,000 ML IV 1,000 ML IV ONE (07:53)
[2021-12-29] MEDS: DUONEB 0.5 MG/3 MG (3 mL) NEB SCH ×4 (08:18→21:00)
[2021-12-29] MEDS: ALBUMIN HUMAN 25%- 100 ML 100 ML IV SCH (08:28)
[2021-12-29] MEDS: NS 1/2 1,000 ML IV 1,000 ML IV SCH (08:28)
[2021-12-29] MEDS: NYSTATIN POWDER TOP SCH ×2 (08:29→21:26)
[2021-12-29] MEDS: FORTAZ or TAZICEF VIAL INJ 2 G in NS 100 ML IV 100 ML IV SCH (08:29)
--- NOTE | 2021-12-29 08:40 | PCM.PROG ---
Progress Note - Progress Note for Day of Date of Exam: 12/27/21 - Subjective Subjective: WAS ADMITTED FOR TREATMENT OF BILATERAL LOWER EXTREMITY CELLULITIS, GANGRENE OF THE LEFT FOOT, UTI, ANEMIA, AND AMS. 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 SHE HAS RECEIVED ONE UNIT OF PACKED RED BLOOD CELLS SINCE ADMISSION. SHE HAS A HISTORY OF CAD, CHF, AND DM II. TODAY, SHE IS LYING IN BED WITH EYES CLOSED ON MORNING ROUNDS. SHE AWAKENS TO VERBAL STIMULI. SHE CONTINUES WITH COMPLAINTS OF INTERMITTENT SHORTNESS OF BREATH. ON EXAMINATION TODAY, HEART IS REGULAR IN RATE AND RHYTHM. BILATERAL LUNGS NOTED WITH DIMINISHED LUNG SOUNDS THROUGHOUT. ABDOMEN IS OBESE, SOFT, AND NON-TENDER WITH NORMAL BOWEL SOUNDS NOTED IN ALL QUADRANTS. THERE IS A SCABBED OVER WOUND TO THE RIGHT LOWER ABDOMEN. RIGHT LOWER EXTREMITY STUMP NOTED WITH MILD ERYTHEMA. MULTIPLE WOUNDS NOTED TO EXTREMITIES, SEE WOUND ASSESSMENTS. SURGICAL DRESSING NOTED TO STUMP OF LEFT LEG. IS FOLLOWING PATIENT AND PERFORMING DRESSING CHANGES. HER VITALS THIS MORNING ARE: 98.5-93-18-94%-170/74. SHE IS CURRENTLY UTILIZING OXYGEN VIA NASAL CANNULA AT 2- 3 LPM. LABS WERE OBTAINED. WBC 13.7, RBC 2.94, HGB 7.8, HCT 23.9, SODIUM 146, CHLORIDE 112, BUN 33, CREATININE 2.28, GLUCOSE 202, CALCIUM 7.6, AST 14, ALT 7, ALK PHOS 183, CRP 234.20, BNP 994, TOTAL PROTEIN 6.5, ALBUMIN 2.3. CULTURES ARE NEGATIVE. URINE CULTURE REVEALED GROWTH OF ENTEROBACTER CLOACAE. WOUND CULTURE REVEALED GROWTH OF PROTEUS VULGARIS AND E.COLI. A CHEST XRAY WAS OBTAINED AND REVEALED: Interval development since the prior examination of bilateral upper lobe and right perihilar infiltrates which could be consistent either with multifocal pneumonia or asymmetric cardiogenic or noncardiogenic edema. SHE IS CURRENTLY RECEIVING NORMAL SALINE AT 30ML/HR, LEVAQUIN 750MG IV Q48H, FORTAZ 2G IV DAILY, ALBUMIN 25% IV DAILY, OTBS ACHS, NOVOLIN R SLIDING SCALE, NYSTATIN POWDER BID, AND ACETAMINOPHEN 1G IV Q6H PRN. WE WILL ADMINISTER LASIX 20MG IV BID X 2 DOSES. WE WILL ADD DUONEBS QID. OTHERWISE, WE PLAN TO FOLLOW-UP WITH AM LABS AND CHEST XRAY AND CONTINUE TO MONITOR. TIME SPENT ON CLINICAL ASSESSMENT, REVIWING LABS AND IMAGING, DECISION MAKING, AND DOCUMENTATION GREATER THAN 45 MINUTES. - Past Medical Family Social History Past Med/Fam/Surg Hx: No changes since H&P Allergies: Allergies No Known Drug Allergies Allergy (Verified 12/05/21 21:12) - Review of Systems ROS: No change since H&P - Vital Signs and I&O's Vital Signs: Temperature 99.5 F Pulse Rate [Apical] 98 Pulse Rate 92 Respiratory Rate 28 Blood Pressure [Right Arm] 132/67 Blood Pressure 128/62 O2 Sat by Pulse Oximetry 100 Intake and Output: Intake & Output 12/26/21 12/27/21 12/28/21 12/29/21 11:59 11:59 11:59 11:59 Intake Total 1487 / 1487 1171 / 1171 1174 / 1174 2072 Output Total 1200 / 1200 3250 / 3250 3100 / 3100 1075 / 1075 Balance 287 / 287 -2078 / -2078 -1925 / -1925 998 / 998 - Physical Exam Oriented: Normal, Person Eyes: Normal Ear: Normal Nose: Normal Throat: Normal Respiratory: Generalized, Diminished Cardiovascular: Normal : Normal Auscultation: Bowel Sounds: Normal Palpation: Normal Tenderness: Normal Skin: Red, Tender, Other (dressing intact . no draiange .. LEFT LEG ) Musculoskeletal: Leg (LEFT ), Tender Psychiatric: Normal Mood Description: Calm Affect: Normal Speech Pattern: Aphasic - Laboratory and Diagnostics Result Diagrams: 12/29/21 05:54 12/29/21 05:54 Labs: 12/28/21 22:30 Sacral Wound Gram Stain - Final 12/22/21 23:40 Blood Blood Culture - Final 12/22/21 23:26 Blood Blood Culture - Final 12/22/21 23:14 Foot - Left Wound Gram Stain - Final 12/22/21 23:14 Foot - Left Wound Culture - Final Proteus Vulgaris Escherichia Coli 12/22/21 23:25 Urine,Catheterized Urine Culture - Final Enterobacter Cloacae Laboratory WBC 12.5 X10^3/uL (3.6-10.0) H 12/29/21 05:54 RBC 2.55 X10^6/uL (3.5-5.4) L 12/29/21 05:54 Hgb 7.1 g/dL (12.0-16.0) L 12/29/21 05:54 Hct 22.0 % (36.0-47.0) L 12/29/21 05:54 MCV 86.3 fL (80.0-100.0) 12/29/21 05:54 MCH 28.0 pg (27.0-34.0) 12/29/21 05:54 MCHC 32.5 g/dL (33.0-35.0) L 12/29/21 05:54 RDW 15.6 % (11.6-16.5) 12/29/21 05:54 Plt Count 175 X10^3/uL (150.0-450.0) 12/29/21 05:54 Plt Count Comment Adequate (ADEQUATE) 12/28/21 04:30 MPV 9.2 fL (7.4-11.0) 12/29/21 05:54 Neut % (Auto) 84.3 % (42.0-75.0) H 12/29/21 05:54 Lymph % (Auto) 9.7 % (21.0-51.0) L 12/29/21 05:54 [place] % (Auto) 5.7 % (0.0-13.0) 12/29/21 05:54 Eos % (Auto) 0.1 % (0.9-2.9) L 12/29/21 05:54 Baso % (Auto) 0.2 % (0.2-1.0) 12/29/21 05:54 Neut # (Auto) 10.6 x10^3/uL (2.2-4.8) H 12/29/21 05:54 Lymph # (Auto) 1.2 X10^3/uL (1.3-2.9) L 12/29/21 05:54 [place] # (Auto) 0.7 x10^3/uL (0.3-0.8) 12/29/21 05:54 Eos # (Auto) 0.0 x10^3/uL (0.0-0.2) 12/29/21 05:54 Baso # (Auto) 0.0 X10^3/uL (0.0-0.1) 12/29/21 05:54 Absolute Nucleated RBC 0.1 /100WBC 12/29/21 05:54 Total Counted 100 12/28/21 04:30 Neutrophils % (Manual) 84 % (39-76) H 12/28/21 04:30 Band Neutrophils % 2 % (0-10) 12/28/21 04:30 Lymphocytes % (Manual) 7 % (13-43) L 12/28/21 04:30 Monocytes % (Manual) 4 % (4-9) 12/28/21 04:30 Eosinophils % (Manual) 1 % (0-6) 12/28/21 04:30 Metamyelocytes % 2 12/28/21 04:30 Plt Morphology Comment Normal (NORMAL) 12/28/21 04:30 RBC Morphology Abnormal (NORMAL) A 12/28/21 04:30 Hypochromasia Slight A 12/28/21 04:30 PT 31.1 SECONDS (11.8-14.3) 12/28/21 22:06 INR Target Range - 12/28/21 22:06 INR 3.17 (0.8-1.3) H 12/28/21 22:06 APTT 153.3 SECONDS (22.9-36.5) H* 12/29/21 05:54 PTT Comment - 12/29/21 05:54 D-Dimer > 20.00 ug/ml (0.0-0.57) H 12/28/21 22:06 Sample Site Rra 12/27/21 16:18 ABG pH 7.390 (7.35-7.45) 12/27/21 16:18 ABG pCO2 38.0 mmHg (35.0-45.0) 12/27/21 16:18 ABG pO2 108.0 mmHg (80.0-100.0) H 12/27/21 16:18 ABG HCO3 23.0 mmol/L (22-26) 12/27/21 16:18 ABG O2 Saturation 98.0 % (90-100) 12/27/21 16:18 ABG Base Excess -1.7 mmol/L (-2.0-2.0) 12/27/21 16:18 Ricci Test Pos 12/27/21 16:18 A-a Gradient 58.0 mmHg 12/27/21 16:18 FiO2 30.0 12/27/21 16:18 Blood Gas Comments Pt jj well eb 12/27/21 16:18 Sodium 150 mmol/L (136-145) H* 12/29/21 05:54 Corrected Sodium 156 mmol/L (136-145) H 12/29/21 05:54 Potassium 4.9 mmol/L (3.5-5.1) 12/29/21 05:54 Chloride 112 mmol/L (98-107) H 12/29/21 05:54 Carbon Dioxide 16.4 mmol/L (21-32) L 12/29/21 05:54 BUN 61 mg/dL (7-18) H 12/29/21 05:54 Creatinine 3.74 mg/dL (0.55-1.02) H 12/29/21 05:54 Est GFR (MDRD) Af Amer 16 (>60) L 12/29/21 05:54 Est GFR (MDRD) Non-Af 13 (>60) L 12/29/21 05:54 Glucose 348 mg/dL (65-99) H 12/29/21 05:54 POC Glucose (mg/dL) 308 mg/dL (65-99) H 12/29/21 05:44 Lactic Acid 2.5 mmol/L (0.4-2.0) H 12/28/21 22:06 Calcium 7.5 mg/dL (8.5-10.1) L 12/29/21 05:54 Corrected Calcium 8.5 mg/dL (8.5-10.1) 12/29/21 05:54 Total Bilirubin 0.70 mg/dL (0.2-1.0) 12/29/21 05:54 AST 302 Units/L (15-37) H 12/29/21 05:54 ALT 44 Units/L (12-78) 12/29/21 05:54 Alkaline Phosphatase 368 Units/L (46-116) H 12/29/21 05:54 Creatine Kinase 47 Units/L (26-192) 12/29/21 05:54 Troponin I High Sens 1325.8 ng/L (4.0-60.0) H* 12/29/21 05:54 C-Reactive Protein 243.90 mg/L (0-3.0) H 12/28/21 04:30 B-Natriuretic Peptide 3780 pg/mL (0-79) H* 12/29/21 05:54 Total Protein 6.7 g/dL (6.4-8.2) 12/29/21 05:54 Albumin 2.8 g/dL (3.4-5.0) L 12/29/21 05:54 Globulin 3.9 g/dL (2.5-4.5) 12/29/21 05:54 Albumin/Globulin Ratio 0.7 Ratio (1.1-2.1) L 12/29/21 05:54 TSH 3rd Generation 2.645 uIU/mL (0.358-3.74) 12/22/21 23:26 Specimen Type Catherized urine 12/22/21 23:25 Urine Color Yellow (YELLOW) 12/22/21 23: Urine Appearance Cloudy (CLEAR) 12/22/21 23:25 Urine pH 7.0 (5.0 - 8.0) 12/22/21 23:25 Ur Specific [place] 1.005 (1.000-1.030) 12/22/21 23:25 Urine Protein 2+ (NEGATIVE) 12/22/21 23:25 Urine Glucose (UA) Negative (NEGATIVE) 12/22/21 23:25 Urine Ketones Negative (NEGATIVE) 12/22/21 23:25 Urine Blood 2+ (NEGATIVE) 12/22/21 23:25 Urine Nitrite Negative (NEGATIVE) 12/22/21 23: Urine Bilirubin Negative (NEGATIVE) 12/22/21 23:25 Urine Urobilinogen Normal (NORMAL) 12/22/21 23:25 Ur Leukocyte Esterase 3+ (NEGATIVE) 12/22/21 23:25 Urine RBC 3-5 /HPF (0-3) A 12/22/21 23:25 Urine WBC Tntc /HPF (0-5) A 12/22/21 23:25 Ur Squamous Epith Cells Rare /HPF (NEGATIVE) 12/22/21 23:25 Urine Bacteria 4+ /HPF (NEGATIVE) 12/22/21 23:25 Ur Culture Indicated? Yes/culture set up 12/22/21 23:25 SARS-CoV-2 (PCR) Negative (NEGATIVE) 12/28/21 22:30 Influenza Type A (PCR) Negative (NEGATIVE) 12/28/21 22:30 Influenza Type B (PCR) Negative (NEGATIVE) 12/28/21 22:30 RSV (PCR) Negative (NEGATIVE) 12/28/21 22:30 Tissue Pathology To follow 12/24/21 11:33 Blood Type O POSITIVE 12/26/21 09:12 Antibody Screen Negative 12/26/21 09:12 Crossmatch See Detail 12/26/21 09:12 - Plan (1) Bilateral lower leg cellulitis Status: Acute Plan: NORMAL SALINE AT 30ML/HR, LEVAQUIN 750MG IV Q48H, FORTAZ 2G IV DAILY, DUONEBS QID, ALBUMIN 25% IV DAILY, OTBS ACHS, NOVOLIN R SLIDING SCALE, NYSTATIN POWDER BID, AND ACETAMINOPHEN 1G IV Q6H PRN. LASIX 20MG IV X 2 DOSES (2) Status post amputation of left foot Status: Acute (3) Multifocal pneumonia Status: Acute (4) Anemia Status: Acute Qualifiers: Anemia type: iron deficiency Iron deficiency anemia type: unspecified iron deficiency Qualified Code(s): D50.9 - Iron deficiency anemia, unspecified (5) UTI (urinary tract infection) Status: Acute Qualifiers: Urinary tract infection type: acute cystitis Hematuria presence: without hematuria Qualified Code(s): N30.00 - Acute cystitis without hematuria (6) AMS (altered mental status) Status: Acute Qualifiers: Altered mental status type: stupor Qualified Code(s): R40.1 - Stupor (7) CKD (chronic kidney disease) stage 4, GFR 15-29 ml/min Status: Chronic (8) CHF (congestive heart failure) Status: Acute Qualifiers: Heart failure type: unspecified Heart failure chronicity: acute on chronic Qualified Code(s): I50.9 - Heart failure, unspecified (9) DM II (diabetes mellitus, type II), controlled Status: Chronic Qualifiers: Diabetes mellitus prison insulin use: unspecified form setter helper insulin use status Diabetes mellitus complication status: with hyperglycemia Qualified Code(s): E11.65 - Type 2 diabetes mellitus with hyperglycemia
[2021-12-29 11:04] LABS: ABG BASE EXCESS -7.7 mmol/L (-2.0-2.0)
[2021-12-29 11:05] LABS: ABG ALLEN TEST POS; ABG HCO3 16.2 mmol/L (22-26)
[2021-12-29] MEDS: [UNRECOGNIZED DRUG - REMARK] XX SCH (11:17)
[2021-12-29] MEDS ORDERED: PHARMACY CONSULT - TPN XX SCH (12:00)
--- NOTE | 2021-12-29 12:22 | DR.UPDATE ---
H&P Update History and Physical Update: History and Physical reviewed and patient examined. Changes noted: NO Yes with the following:will place central line as ordered by MD H&P Reviewed: Yes Patient was examined?: Yes Procedures (ALL) - Central Line Placement PCM.CLCO: written consent Time out performed: Yes Patient placed pm monitor/pulse ox: Yes prep: mask, gown, gloves, other Centrial line prep: chlorhexidine scrub, sterile drapes applied Local anesthsia used: lidocane 1% Ultrasound used for placement: Yes (right ij id'd via u/s and cannulation visualized) Central line lumen ininserted: triple Post procedure: sutured in place, good blood return, all ports aspirated, flushed,capped, sterile dressing applied Post procedure xray: tip oc catheter in good position (cxr pending) Patient tolerated procedure: Yes Complications: none
--- NOTE | 2021-12-29 12:44 | RAD ---
HISTORYCENTRAL LINE PLACEMENTSTUDYCHEST, 1 [id number]/2022FINDINGSThe cardiomediastinal silhouette is stable. Right IJ central venous catheter tip overlying the SVC. No acute airspace disease. No pneumothorax or effusion. The bony thorax appears intact.IMPRESSIONExpected positioning of right IJ central venous catheter with tip overlying the SVC.Electronically signed by: JANIE MARTINEZ (Dec 29, 2021 12:42:49)
[2021-12-29] MEDS ORDERED: HEPARIN SODIUM INJ 5000 UNITS IVP ONE ×2 (14:39→20:35)
[2021-12-29] MEDS ORDERED: HEPARIN SODIUM INJ 5000 UNITS ONE ×2 (14:42→20:37)
--- NOTE | 2021-12-29 15:07 | RAD ---
HISTORYPossible obstructionSTUDYKUBCOMPARISONNone br.br.br.br.br bowel gas pattern. There is relative paucity of small bowel gas seen. Mild gas distention of the right colon and transverse colon. Large colonic stool burden.Free air: NoneOther: Cholecystectomy clips. Visualized lung bases are clear.IMPRESSIONNonspecific bowel gas pattern. Large colonic stool burden, may reflect constipation. There is mild gas distention of the right colon and transverse colon, most suggestive of ileus. No dilated small bowel loops are seen.Electronically signed by: Osman Chacon (Dec 29, 2021 15:06:08)
[2021-12-29] MEDS ORDERED: PHARMACY COMMENT IV NR (21:00)
[2021-12-29] MEDS ORDERED: LOPRESSOR INJ 5 MG AMP ONE (23:07)
[2021-12-29 23:21] LABS: ABG ALLEN TEST POS; ABG BASE EXCESS -4.2 mmol/L (-2.0-2.0)
[2021-12-29] MEDS ORDERED: LOPRESSOR INJ 5 MG AMP IVP PRN (23:45)
[2021-12-30] MEDS ORDERED: LOPRESSOR INJ 5 MG AMP IVP ONE (00:05)
[2021-12-30] MEDS ORDERED: LOPRESSOR INJ 5 MG AMP ONE (00:11)
[2021-12-30] MEDS ORDERED: LANOXIN INJ ONE (00:12)
[2021-12-30] MEDS ORDERED: LANOXIN INJ IVP ONE (01:00)
[2021-12-30] MEDS: HEPARIN SODIUM IN D5W 25,000 UNITS/500 ML BAG IV PRN (02:32)
[2021-12-30 03:05] LABS: BASOPHILS # (AUTO) 0.1 X10^3/uL (0.0-0.1); MEAN CORPUSCULAR HEMOGLOBIN 28.3 pg (27.0-34.0); WHITE BLOOD COUNT 12.1 X10^3/uL (3.6-10.0)
[2021-12-30 03:09] LABS: BASOPHILS % (AUTO) 1.1 % (0.2-1.0); EOSINOPHILS # (AUTO) 0.1 x10^3/uL (0.0-0.2); HEMATOCRIT 24.1 % (36.0-47.0); LYMPHOCYTES % (AUTO) 8.5 % (21.0-51.0); MEAN CORPUSCULAR VOLUME 85.7 fL (80.0-100.0); MEAN PLATELET VOLUME 9.5 fL (7.4-11.0); MONOCYTES # (AUTO) 0.5 x10^3/uL (0.3-0.8); NEUTROPHILS # (AUTO) 10.4 x10^3/uL (2.2-4.8); NEUTROPHILS % (AUTO) 85.4 % (42.0-75.0); RED BLOOD COUNT 2.82 X10^6/uL (3.5-5.4); RED CELL DISTRIBUTION WIDTH 15.4 % (11.6-16.5)
[2021-12-30 03:18] LABS: CALCIUM 7.8 mg/dL (8.5-10.1); CARBON DIOXIDE 21.1 mmol/L (21-32); COR CA(FOR HYPOALB) 8.6 mg/dL (8.5-10.1); CREATININE 4.31 mg/dL (0.55-1.02)
[2021-12-30 03:31] LABS: PREALBUMIN 14.8 mg/dL (18-35.7)
[2021-12-30 03:46] LABS: BAND NEUTROPHILS % 4 % (0-10); METAMYELOCYTES % 2; PLATELET MORPHOLOGY COMMENT NORMAL (NORMAL)
[2021-12-30 03:47] LABS: HYPOCHROMASIA SLIGHT; TARGET CELLS 1+; TEAR DROP CELLS SLIGHT
[2021-12-30] MEDS: ZOFRAN INJ 4 MG VIAL IVP PRN (03:53)
[2021-12-30] MEDS ORDERED: LANOXIN INJ IVP SCH (05:00)
[2021-12-30] MEDS: NovoLIN R (or HumuLIN R) SUBCUT PRN (05:44)
--- NOTE | 2021-12-30 07:05 | RAD ---
HISTORYSOB PNEUMONIASTUDYCHEST, 1 [id number]/21/2022.TECHNIQUEAP view of the chestFINDINGSRight IJ central line in good position. The cardiac silhouette is stably enlarged. Mediastinal contours appear stable. Similar appearance of mild scattered bilateral hazy and interstitial pulmonary opacities. No definite pleural effusion or pneumothorax.IMPRESSIONNo significant change compared to prior radiograph.Electronically signed by: Mayo Mercedes (Dec 30, 2021 07:04:04)
[2021-12-30] MEDS ORDERED: VANCOMYCIN IV *PREMIX 1 G/200 ML BAG 1 G/200 ML PIGGYBACK IV NR (08:00)
[2021-12-30] MEDS: DUONEB 0.5 MG/3 MG (3 mL) NEB SCH (08:34)
--- NOTE | 2021-12-30 08:42 | DR.PROGNOT ---
Hospital Progress Notes - Progress Note for Day of: Progress Note Date: 12/30/21 - Chief Complaint Chief Complaint: no changes , on Bi Pap .. dressing was changed .. the incision is clean , no infection , no drainage .still in SOB and respiratory compromise .. 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 - Past Medical Family Social History Past Med/Fam/Surg Hx: No changes since H&P Allergies: Allergies No Known Drug Allergies Allergy (Verified 12/05/21 21:12) - Review Of Systems ROS: No change since H&P - Vital Signs Vital Signs: Temperature 99.5 F Pulse Rate [Apical] 98 Pulse Rate 91 Respiratory Rate 20 Blood Pressure [Right Arm] 132/67 Blood Pressure 138/64 O2 Sat by Pulse Oximetry 97 - Physical Exam Oriented: Normal, Person Eyes: Normal Ear: Normal Nose: Normal Throat: Normal Respiratory: Generalized, Diminished Cardiovascular: Normal : Normal GI:Auscultation: Normal GI:Palpation: Normal GI: Tenderness: Normal Skin: Red, Tender, Other (dressing intact . no draiange .. LEFT LEG ) Musculoskeletal: Leg (LEFT ), Tender Psychiatric: Normal Mood Description: Calm Affect: Normal Speech Pattern: Unclear, Inappropriate - Laboratory and Diagnostics Result Diagrams: 12/30/21 02:51 12/30/21 02:51 Labs: 12/28/21 22:30 Sacral Wound Gram Stain - Final 12/22/21 23:40 Blood Blood Culture - Final 12/22/21 23:26 Blood Blood Culture - Final 12/22/21 23:14 Foot - Left Wound Gram Stain - Final 12/22/21 23:14 Foot - Left Wound Culture - Final Proteus Vulgaris Escherichia Coli 12/22/21 23:25 Urine,Catheterized Urine Culture - Final Enterobacter Cloacae Laboratory WBC 12.1 X10^3/uL (3.6-10.0) H 12/30/21 02:51 RBC 2.82 X10^6/uL (3.5-5.4) L 12/30/21 02:51 Hgb 8.0 g/dL (12.0-16.0) L 12/30/21 02:51 Hct 24.1 % (36.0-47.0) L 12/30/21 02:51 MCV 85.7 fL (80.0-100.0) 12/30/21 02:51 MCH 28.3 pg (27.0-34.0) 12/30/21 02:51 MCHC 33.0 g/dL (33.0-35.0) 12/30/21 02:51 RDW 15.4 % (11.6-16.5) 12/30/21 02:51 Plt Count 178 X10^3/uL (150.0-450.0) 12/30/21 02:51 Plt Count Comment Adequate (ADEQUATE) 12/30/21 02:51 MPV 9.5 fL (7.4-11.0) 12/30/21 02:51 Neut % (Auto) 85.4 % (42.0-75.0) H 12/30/21 02:51 Lymph % (Auto) 8.5 % (21.0-51.0) L 12/30/21 02:51 [place] % (Auto) 4.0 % (0.0-13.0) 12/30/21 02:51 Eos % (Auto) 1.0 % (0.9-2.9) 12/30/21 02:51 Baso % (Auto) 1.1 % (0.2-1.0) H 12/30/21 02:51 Neut # (Auto) 10.4 x10^3/uL (2.2-4.8) H 12/30/21 02:51 Lymph # (Auto) 1.0 X10^3/uL (1.3-2.9) L 12/30/21 02:51 [place] # (Auto) 0.5 x10^3/uL (0.3-0.8) 12/30/21 02:51 Eos # (Auto) 0.1 x10^3/uL (0.0-0.2) 12/30/21 02:51 Baso # (Auto) 0.1 X10^3/uL (0.0-0.1) 12/30/21 02:51 Absolute Nucleated RBC 0.2 /100WBC 12/30/21 02:51 Total Counted 100 12/30/21 02:51 Neutrophils % (Manual) 73 % (39-76) 12/30/21 02:51 Band Neutrophils % 4 % (0-10) 12/30/21 02:51 Lymphocytes % (Manual) 13 % (13-43) 12/30/21 02:51 Monocytes % (Manual) 7 % (4-9) 12/30/21 02:51 Eosinophils % (Manual) 1 % (0-6) 12/30/21 02:51 Metamyelocytes % 2 12/30/21 02:51 Nucleated RBCs 1 12/30/21 02:51 Plt Morphology Comment Normal (NORMAL) 12/30/21 02:51 RBC Morphology Abnormal (NORMAL) A 12/30/21 02:51 Hypochromasia Slight A 12/30/21 02:51 Target Cells 1+ A 12/30/21 02:51 Tear Drop Cells Slight A 12/30/21 02:51 PT 31.1 SECONDS (11.8-14.3) 12/28/21 22:06 INR Target Range - 12/28/21 22:06 INR 3.17 (0.8-1.3) H 12/28/21 22:06 APTT 68.5 SECONDS (22.9-36.5) H 12/30/21 02:51 PTT Comment - 12/30/21 02:51 D-Dimer > 20.00 ug/ml (0.0-0.57) H 12/28/21 22:06 Sample Site Lr 12/29/21 23:07 ABG pH 7.390 (7.35-7.45) 12/29/21 23:07 ABG pCO2 33.0 mmHg (35.0-45.0) L 12/29/21 23:07 ABG pO2 123.0 mmHg (80.0-100.0) H 12/29/21 23:07 ABG HCO3 20.0 mmol/L (22-26) L 12/29/21 23:07 ABG O2 Saturation 99.0 % (90-100) 12/29/21 23:07 ABG Base Excess -4.2 mmol/L (-2.0-2.0) L 12/29/21 23:07 Ricci Test Pos 12/29/21 23:07 A-a Gradient 35.0 mmHg 12/29/21 23:07 FiO2 28.0 12/29/21 23:07 Blood Gas Comments Maria Elena well sw 12/29/21 23:07 Sodium 153 mmol/L (136-145) H* 12/30/21 02:51 Corrected Sodium 157 mmol/L (136-145) H 12/30/21 02:51 Potassium 4.2 mmol/L (3.5-5.1) 12/30/21 02:51 Chloride 115 mmol/L (98-107) H* 12/30/21 02:51 Carbon Dioxide 21.1 mmol/L (21-32) 12/30/21 02:51 BUN 76 mg/dL (7-18) H 12/30/21 02:51 Creatinine 4.31 mg/dL (0.55-1.02) H 12/30/21 02:51 Est GFR (MDRD) Af Amer 13 (>60) L 12/30/21 02:51 Est GFR (MDRD) Non-Af 11 (>60) L 12/30/21 02:51 Glucose 261 mg/dL (65-99) H 12/30/21 02:51 POC Glucose (mg/dL) 262 mg/dL (65-99) H 12/30/21 05:16 Lactic Acid 2.5 mmol/L (0.4-2.0) H 12/28/21 22:06 Calcium 7.8 mg/dL (8.5-10.1) L 12/30/21 02:51 Corrected Calcium 8.6 mg/dL (8.5-10.1) 12/30/21 02:51 Total Bilirubin 0.40 mg/dL (0.2-1.0) 12/30/21 02:51 AST 2316 Units/L (15-37) H 12/30/21 02:51 ALT 367 Units/L (12-78) H 12/30/21 02:51 Alkaline Phosphatase 367 Units/L (46-116) H 12/30/21 02:51 Creatine Kinase 47 Units/L (26-192) 12/29/21 05:54 Troponin I High Sens 1325.8 ng/L (4.0-60.0) H* 12/29/21 05:54 C-Reactive Protein 174.10 mg/L (0-3.0) H 12/29/21 05:54 B-Natriuretic Peptide 2470 pg/mL (0-79) H* 12/30/21 02:51 Total Protein 7.0 g/dL (6.4-8.2) 12/30/21 02:51 Albumin 3.0 g/dL (3.4-5.0) L 12/30/21 02:51 Globulin 4.0 g/dL (2.5-4.5) 12/30/21 02:51 Albumin/Globulin Ratio 0.8 Ratio (1.1-2.1) L 12/30/21 02:51 Prealbumin 14.8 mg/dL (18-35.7) L 12/30/21 02:51 TSH 3rd Generation 2.645 uIU/mL (0.358-3.74) 12/22/21 23:26 Specimen Type Catherized urine 12/22/21 23:25 Urine Color Yellow (YELLOW) 12/22/21 23: Urine Appearance Cloudy (CLEAR) 12/22/21 23: Urine pH 7.0 (5.0 - 8.0) 12/22/21 23:25 Ur Specific [place] 1.005 (1.000-1.030) 12/22/21 23:25 Urine Protein 2+ (NEGATIVE) 12/22/21 23:25 Urine Glucose (UA) Negative (NEGATIVE) 12/22/21 23: Urine Ketones Negative (NEGATIVE) 12/22/21 23:25 Urine Blood 2+ (NEGATIVE) 12/22/21 23: Urine Nitrite Negative (NEGATIVE) 12/22/21 23: Urine Bilirubin Negative (NEGATIVE) 12/22/21 23:25 Urine Urobilinogen Normal (NORMAL) 12/22/21 23:25 Ur Leukocyte Esterase 3+ (NEGATIVE) 12/22/21 23:25 Urine RBC 3-5 /HPF (0-3) A 12/22/21 23: Urine WBC Tntc /HPF (0-5) A 12/22/21 23:25 Ur Squamous Epith Cells Rare /HPF (NEGATIVE) 12/22/21 23:25 Urine Bacteria 4+ /HPF (NEGATIVE) 12/22/21 23:25 Ur Culture Indicated? 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 s/p amputation . DM with complications .. same pulmonary care , IV ABT and diabetic control . - Problem Patient Problems: Patient Problems Bullous pemphigoid (Acute) L12.0 AMS (altered mental status) (Acute) R41.82 UTI (urinary tract infection) (Acute) N39.0 Gangrene of toe of left foot (Acute) I96 Cellulitis of foot, left (Acute) L03.116 CKD (chronic kidney disease) stage 4, GFR 15-29 ml/min (Chronic) N18.4 Hypothyroidism (acquired) (Acute) E03.9 Bilateral lower leg cellulitis (Acute) L03.116, L03.115 CHF (congestive heart failure) (Acute) I50.9 DM II (diabetes mellitus, type II), controlled (Chronic) E11.9 Anemia (Acute) D64.9 Status post amputation of left foot (Acute) Z89.432 Multifocal pneumonia (Acute) J18.9
[2021-12-30] MEDS: ALBUMIN HUMAN 25%- 100 ML 100 ML IV SCH (08:57)
[2021-12-30] MEDS: FORTAZ or TAZICEF VIAL INJ 2 G in NS 100 ML IV 100 ML IV SCH (08:59)
[2021-12-30] MEDS: NYSTATIN POWDER TOP SCH (09:01)
[2021-12-30] MEDS ORDERED: NS 500 ML IV 500 ML IV ONE (09:27)
[2021-12-30] MEDS ORDERED: NS 1/2 1,000 ML IV 1,000 ML IV ONE (09:32)
[2021-12-30] MEDS: NS 1/2 1,000 ML IV 1,000 ML IV SCH (09:42)
[2021-12-30 11:13] VITALS: BP 133/62
[2021-12-31] MEDS ORDERED: PHARMACY COMMENT IV ONE (07:30)
== END 2021-12-30 10:25 | disposition critical access hospital (66) | DRG 579 ==
LOC: ER 22:40 → ICU 12-23 00:54
PROVIDERS: ADMIT Internal Medicine; ATTEND Internal Medicine
DX: B96.89 Other specified bacterial agents as the cause of diseases classified elsewhere; L03.115 Cellulitis of right lower limb; N30.00 Acute cystitis without hematuria; J18.8 Other pneumonia, unspecified organism; R77.8 Other specified abnormalities of plasma proteins; R79.1 Abnormal coagulation profile; B96.4 Proteus (mirabilis) (morganii) as the cause of diseases classified elsewhere; I13.0 Hypertensive heart and chronic kidney disease with heart failure and stage 1 through stage 4 chronic kidney disease, or unspecified chronic kidney disease; R40.1 Stupor; B95.2 Enterococcus as the cause of diseases classified elsewhere; N18.4 Chronic kidney disease, stage 4 (severe); M86.8X7 Other osteomyelitis, ankle and foot; E11.65 Type 2 diabetes mellitus with hyperglycemia; L03.116 Cellulitis of left lower limb; B95.7 Other staphylococcus as the cause of diseases classified elsewhere; E11.69 Type 2 diabetes mellitus with other specified complication; E03.8 Other specified hypothyroidism; L12.0 Bullous pemphigoid; R06.02 Shortness of breath; Z20.822 Contact with and (suspected) exposure to COVID-19; E11.42 Type 2 diabetes mellitus with diabetic polyneuropathy; Z89.511 Acquired absence of right leg below knee; I50.9 Heart failure, unspecified; I96 Gangrene, not elsewhere classified